=== PATIENT | female | born 1940 | race African-American/Black ===

== ENCOUNTER 2017-03-14 06:29 | Day surgery (SDC) | payer MEDICARE ==
[~2017-03-14] VITALS: Ht 160 cm; Wt 78.9 kg
[~2017-03-14 06:29] MED LIST: ENAL20TA81 PO; ERGO50000 PO; ERYT1O; HYDR12.56 PO; METF-324 PO; POLY10O OD; SYNT50TA OR
[2017-03-14] MEDS ORDERED: IOHEXOL 350 MG/ML 100 ML BTL (for Cath Lab) OTHER ONE (06:30)
[2017-03-14] MEDS ORDERED: IOHEXOL 350 MG/ML 50 ML BTL (for Cath Lab) OTHER ONE (06:30)
[2017-03-14] MEDS ORDERED: NS 1000P @30 MLS/HR (KVO) IV SCH (07:15)
[2017-03-14 07:31] VITALS: BP 174/87; PULSE 60; RESP 17; TEMP 97.6; O2SAT 96
[2017-03-14] MEDS ORDERED: ERGO1CAP30 PO (07:41)
[2017-03-14] MEDS ORDERED: ASPI81CH37 CHEW (07:41)
[2017-03-14] MEDS ORDERED: ATOR20TA15 PO (07:41)
[2017-03-14] MEDS ORDERED: LEVO50TA4 PO (07:41)
[2017-03-14] MEDS ORDERED: METF500T PO (07:41)
[2017-03-14] MEDS ORDERED: ARTIDRO EACH EYE (07:41)
[2017-03-14] MEDS ORDERED: HYDR25TA5 PO (07:41)
[2017-03-14] MEDS ORDERED: HEPARIN-NS/PF INJ 1,000 ML ONE (09:03)
[2017-03-14] MEDS ORDERED: MIDAZOLAM HCL 2 MG/2 ML VIAL ONE (09:04)
[2017-03-14] MEDS ORDERED: BIVALIRUDIN 250 MG VIAL ONE (09:54)
[2017-03-14] MEDS ORDERED: HEPARIN-NS/PF INJ 500 ML ONE (09:54)
[2017-03-14] MEDS ORDERED: CLOPIDOGREL 300 MG TAB ONE (10:15)
[2017-03-14] MEDS ORDERED: SODIUM CHLOR 0.9% 1000 ML INJ 1,000 ML IV SCH (10:40)
[2017-03-14] MEDS ORDERED: MISC INFORMATION XX ONE ×2 (10:45→11:30)
[2017-03-14] MEDS ORDERED: LIDOCAINE HCL 1% 50 ML VIAL INFIL PRN ×2 (10:45→11:30)
[2017-03-14] MEDS ORDERED: BACITRACIN OINT 0.9 GM PKT TOP ONE ×2 (10:45→11:30)
[2017-03-14] MEDS ORDERED: ATROPINE SULFATE 1 MG/ML VIAL IV PRN ×2 (10:45→11:30)
[2017-03-14] MEDS ORDERED: SODIUM CHLOR 0.9% 250 ML INJ 250 ML IV PRN ×2 (10:45→11:30)
[2017-03-14] MEDS ORDERED: METOCLOPRAMIDE HCL 10 MG/2 ML VIAL IV PRN ×2 (10:45→11:30)
[2017-03-14] MEDS ORDERED: oxyCODONE/ACETAMINOPHEN 5 MG/325 MG TAB PO PRN ×2 (10:45)
[2017-03-14] MEDS ORDERED: LORazepam 2 MG/ML VIAL IV PRN ×2 (10:45→11:30)
[2017-03-14] MEDS ORDERED: ONDANSETRON HCL 4 MG/2 ML VIAL IV PRN ×2 (10:45→11:30)
--- NOTE | 2017-03-14 10:52 | CATHPROC ---
[employer] NOW HIS Report Study Information Study Number Admission Scheduled Start Study Start [id number] Mar 14 2017 6:29AM 03/14/2017 Mar 14 2017 8:57AM [facility] Service Cardiac Catheterization Admit Source Facility Department Other [facility] - Glass Breaker Physician and Clinical Staff Initial Luis Mckoy Diet Technician Registeredkathe Dee RN, Rhys Recorder Lauryn Kenny,RT(R) Scrub Lynne Mcallister,RT(R) Procedures Performed Procedure Location (Site) Vessel Name Coronary Angiograms LCA Left Coronary Coronary Angiograms RCA Right Coronary Periph stent Iliac R. Com. (R4) Illiac Art. ELECTROTYPE CASTER Iliac R. Com. (R4) Illiac Art. PTCA RCA Right Coronary Stent RCA Prox Right Coronary Wire insertion Fem Art (right) Femoral Art Equipment Time Road Supervisor Of Engines Description Size Mfg Part Number Used/Scraped COPILOT VALVE, BLEEDBACK [id number] 09:58 [employer] Used CONTROL *[id number] ARROW INTERNATIONAL CATHETER, FR.7 BALLOON [id number] 09:09 FR 7 Used INC. WEDGE PRESSURE *[id number] TRANSDUCER, TRUWAVE [id number] 09:09 PINON MORENO * Used W/STOCKCOCK *[id number] 09:59 BOSTON SCIENTIFIC BALLOON, 3.0 15MM EMERGE MR 3.0 15MM Used *[id number] 10:29 CARDIVA MEDICAL VASCADE, FR6 CLOSURE SYSTEM FR 6\7 Used *[id number] 09:56 CORDIS/ AJAY JR 4.0 GUIDE CATHETER 55CM FR 6 Used *[id number] *[id number] 534-520T *[id number] [id number] *[id number] 534-621T *[id number] ENDOVASCULAR 10:23 STENT, EVERFLEX 8 X 40 80CM 8 X 40 [id number] Used COMPANY BALLOON, ADMIRAL EXTREME 7 X [id number] 10:17 Interneer 80CM Used 20 80CM *[id number] 09:09 MEDLINE INDUSTRIES PACK, CCL CUSTOM * Used *[id number] [id number] 09:09 MEDLINE PACER PEN, SKIN DUAL W/ RULER * Used *[id number] 10:07 MEDTRONIC STENT, 3.0 12 INTEGRITY 3.0 12 Used *[id number] [id number] 09:57 MERIT MEDICAL 30 KAVITHA INDEFLATOR Used *[id number] [id number] 09:32 Kidlandia MEDICAL SHEATH, FR6.5 PRELUDE 11CM FR 6.5 038ACT Used *6114421 [id number] 09:09 [employer]land[employer] MEDICAL WIRE, 3MMJ .035 180CM 180CM Used *[id number] [id number] 09:36 [employer] MEDICAL WIRE, EXCHANGE 260CM 3MMJ 260CM Used *0247810 [id number] 09:09 NAMIC MANIFOLD, 2 PORT * Used *[id number] [id number] 09:09 NAMIC MANIFOLD, 4 PORT * Used *7906555 09:09 NYCOMED OMNIPAQUE, 350 MG, 150ML 150ML [id number] Used [id number] 09:09 [facility] BLANKET,WARM AIR CCL * Used *[id number] [id number] 09:09 TERUMO MEDICAL SHEATH, FR5 TERUMO (10CM) FR 5 Used *[id number] [id number] 09:09 TERUMO MEDICAL SHEATH, FR7 TERUMO (10CM) FR 7 Used *[id number] WIRE, RUNTHROUGH NS FLOPPY [id number] 09:57 TERUMO MEDICAL 180CM Used .014 180CM *[id number] 09:38 VASCULAR SOLUTIONS PIGTAIL DUAL LUMEN CATHETER FR 6 5540 *[id number] Used Equipment Model, Serial, Lot Number and Expiration Data Description Model Number Serial Number Lot Number Expiration Date STENT, 3.0 12 INTEGRITY [id number] 08-10-2018 STENT, EVERFLEX 8 X 40 80CM [id number] 06-05-2019 History: Current Medications Medication Dosage/Unit Route Frequency Last Date/Time Taken Statins (any) ASA Glucophage Synthroid History: Allergies Allergy Reaction No Known Allergies NKDA History: Risk Factors Family History of Hypertension Dyslipidemia Previous MT Previous Heart Failure Premature CAD Yes Yes No No No Prior Valve Prior PCI Prior CABG Surgery No No No Cerebrovascular Peripheral Artery Chronic Lung On Dialysis Diabetes Diabetes Therapy Disease Disease Disease No Yes No Yes Yes Oral History: Symptoms/Diagnosis Selection Items SOB History: Stress Tests Stress or Imaging Studies Performed Yes History: Other Current Smoker No Labs Hgb (g/dl) Hct (%) WBC (l/cumm) Platelets (thousands) 11.60-17.00 35.00-51.00 4.00-11.00 150.00-450.00 12.6 38.6 6.1 312 Glucose (mg/dl) BUN (mg/dl) Creatinine (mg/dl) BUN:Creatinine (1:x) 74.00-106.00 7.00-18.00 0.50-1.30 10.00-20.00 96 12 0.9 13.3 Na (meq/l) K (meq/l) 136.00-145.00 3.50-5.10 141 3.9 INR (PTT:PT) 0.90-1.10 0.9 CPK-MB (ng/ML) 0.50-3.60 Not Drawn Medication Medication Total Dose (Bolus/Oral) Medication Total Dosage/Unit 1% XYLOCAINE 20 mL ANGIOMAX BOLUS 11.4 mL FENTANYL 25 mcg PLAVIX 600 mg VERSED 1 mg Medications (Bolus/Oral) Medication Time Given Dosage/Unit Administered By Reason FENTANYL 03/14/2017 9:24:38 AM 25 mcg Rhys Dee RN 25 mcg FENTANYL given in lab by Rhys Dee RN in Right Radial via Peripheral IV. Ordered by Luis Molian. VERSED 03/14/2017 9:25:00 AM 1 mg Rhys Dee RN 1 mg VERSED given in lab by Rhys Dee RN in Right Antecubital via Peripheral IV. Ordered by Luis Molina. 1% XYLOCAINE 03/14/2017 9:25:04 AM 20 mL Luis Molina 20 mL 1% XYLOCAINE given in lab by Luis Molina in Right Groin via Subcutaneous. Ordered by Luis Molina. ANGIOMAX BOLUS 03/14/2017 9:56:11 AM 11.4 mL Luis Molina 11.4 mL ANGIOMAX BOLUS given in lab by Luis Molina in Right Wrist via Peripheral IV. Ordered by Luis Durán. PLAVIX 03/14/2017 10:35:20 AM 600 mg Rhys Dee RN 600 mg PLAVIX given in lab by Rhys Dee RN via Oral. Ordered by Luis Molina. Medication (Drip) Medication Time Given Dosage/Unit Concentration/Unit Diluent (ml) Solution ANGIOMAX DRIP 03/14/2017 9:58:20 AM 1.755 mg/kg/hr 250 mg 50 NaCl .9 1.755 mg/kg/hr ANGIOMAX DRIP given in lab by Luis Molina in Right Wrist via Peripheral IV. Pump/Dr ip Flow = 26.6 ml/hr using NaCl .9 with a concentration of 250 mg in 50 ml. Ordered by Luis Molina. Initial Case Assessment Cardiovascular HR Rhythm NIBP Chest Pain 73 sinus 163/72 0 Edema Present Skin color Skin None Normal Warm Dry Circulatory - Right Pulses Posterior Tibial Femoral 1 3 Scale (0,1,2,3,4,d) Circulatory - Left Pulses Posterior Tibial Femoral 1 1 Scale (0,1,2,3,4,d) Neurological State Oriented to time-place- Alert Moves all extremities person Respiration - General Respiration Rate SpO2 (%) (B/min) 18 99 Chronological Log Time Study Chronological Log 8:56:49 Patient arrived via Bed. 8:56:50 Patient Name, D.O.B, / Armband Verified By R.N. 8:56:50 Consent signed by the physician and the patient and verified by the Glass Breaker staff. 8:56:51 Pre-op and post- op instructions given; patient acknowledges understanding of instructions. 8:56:51 Verbal Stimulation=2 Physical Stimulation=2 Airway=2 Respiration=2 TOTAL=8. (0=absent, 1=li mited, 2=present) 8:56:57 Presedation assessment performed by Glass Breaker RN. 8:57:00 Patient has been NPO for More than 6Hrs. 8:57:00 Skin Breakdown- none per patient 8:57:01 Patient Warmer Placed on the Table. 8:57:02 Shandra Prominences Protected 8:57:05 A # 20 IV was noted in the Antecubital (right). Grade = 0 8:57:06 History and physical on the chart or being dictated. Assessment: Initial Case, HR=73 BPM, Rhythm=sinus, BQVL=801/72 mmhg, Chest Pain=0, Edema=None, Color=Normal, Skin = Warm, Dry Right Pulses: Post Tib=1, Femoral=3 8:57:09 Left Pulses: Post Tib=1, Femoral=1 Neurological: State=Alert, Ox3, MARTEL Respiration: Resp=18 B/min, SpO2=99 % Vitals capture started with the following parameters, Patient=Adult, Interval=5 min, Initial P glkjzln=920 mmHg, 9:04:43 Deflation Rate=5 mmHg, Cuff placed on Left Arm 9:05:21 HR=69 bpm, QWMW=311/72 mmhg, SpO2=98.0 %, Resp=8 B/min, Pain=0, Kole=10, Webster=2 9:07:51 Reference ECG taken 9:10:24 HR=67 bpm, YJEC=984/76 mmhg, SpO2=98.0 %, Resp=18 B/min, Pain=0, Kole=10, Webster=2 9:13:14 Bilateral groins prepped with 2% chlorhexidine, and draped after a 3 min. waiting time. 9:15:25 HR=61 bpm, SAGY=806/78 mmhg, SpO2=98.0 %, Resp=16 B/min, Pain=0, Kole=10, Webster=2 9:17:48 MD paged 9:18:22 Pressure channel 1 zeroed. 9:19:00 MD arrived. 9:20:26 HR=62 bpm, DAZU=091/74 mmhg, SpO2=97.0 %, Resp=16 B/min, Pain=0, Kole=10, Webster=2 Time Out. Correct patient, correct procedure, correct physician, power injector not loaded with contrast surgical team 9:24:07 present. Time Out Concurred by MD, individual staff in procedure. 9:24:30 Case Start 9:24:38 25 mcg FENTANYL given in lab by Rhys Dee RN in Right Radial via Peripheral IV. Ordered Luis Owens. 9:25:00 1 mg VERSED given in lab by Rhys eDe RN in Right Antecubital via Peripheral IV. Ordered by Luis Molina. 9:25:04 20 mL 1% XYLOCAINE given in lab by Luis Molina in Right Groin via Subcutaneous. Ordered Luis Owens. 9:25:29 HR=71 bpm, FVNY=177/64 mmhg, SpO2=93.0 %, Resp=13 B/min, Pain=0, Kole=10, Webster=2 9:25:56 Access site was Right Femoral Artery. 9:26:13 A SHEATH, FR5 TERUMO (10CM) FR 5 was advanced into the Fem Art (right) using the Percutaneou s technique. 9:28:06 Access site was Right Femoral Vein. 9:28:14 A SHEATH, FR7 TERUMO (10CM) FR 7 was advanced into the Fem Vein (right) using the Percutaneo us technique. 9:29:00 A CATHETER, FR.7 BALLOON WEDGE PRESSURE FR 7 was inserted via Fem Vein (right) Recorded Pressure: RA, HR=64, Condition=Condition 1 9:29:22 (Right Atrium) RA 5/5/2 Recorded Pressure: RV, HR=66, Condition=Condition 1 9:29:53 (Right Ventricle) RV 40/0/8 9:30:18 HR=73 bpm, IVGB=029/64 mmhg, SpO2=94.0 %, Resp=14 B/min, Pain=0, Kole=10, Webster=2 Recorded Pressure: PA, HR=60, Condition=Condition 1 9:30:33 (Pulmonary Artery) PA 35/10/19 A SHEATH, FR6.5 PRELUDE 11CM FR 6.5 was exchanged in the Fem Art (right). This was necessary in order to 9:31:34 accomodate a larger catheter. Recorded Pressure: PCW, HR=66, Condition=Condition 1 9:31:58 (Pulmonary Capillary Wedge) PCW 10//5 9:32:26 Saturation: Site=Ao (Aorta) , O2=91.6 %, Hgb=12.6 gm/dl, Condition=Condition 1. Used in calc ulation. 9:32:32 Saturation: Site=PA (Pulmonary Artery) , O2=72.2 %, Hgb=12.6 gm/dl, Condition=Condition 1. U sed in calculation. 9:34:54 Pressure channel 2 zeroed. 9:35:11 [place] Nuha Catheter Removed 9:35:17 HR=60 bpm, RPHS=548/62 mmhg, SpO2=96.0 %, Resp=24 B/min, Pain=0, Kole=10, Webster=2 A AL 1 INFINITI CATHETER FR 6 was advanced over a wire. OMNIPAQUE, 350 MG, 150ML 150ML was used for 9:35:22 injections. 9:35:58 The previous wire was exchanged for a wire. After removing the current catheter a PIGTAIL DUAL LUMEN CATHETER FR 6 was advanced over a WIRE, EXCHANGE 9:37:13 260CM 3MMJ 260CM. 9:39:50 Wire removed 9:40:22 HR=76 bpm, RYEZ=860/59 mmhg, SpO2=96.0 %, Resp=15 B/min, Pain=0, Kole=10, Webster=2 Recorded Pressure: LV, Ao, HR=61, Condition=Condition 1 9:41:15 (Left Ventricle) LV 179/5/14, (Aorta) Ao 105/44/67 9:42:07 Catheter was removed A JL 4.0 INFINITI CATHETER FR 5 was advanced over a wire. OMNIPAQUE, 350 MG, 150ML 150ML was us ed for 9:42:21 injections. 9:44:02 The LCA was injected and visualized at various angles. OMNIPAQUE, 350 MG, 150ML 150ML used. After removing the current catheter a JR 4.0 INFINITI CATHETER FR 4 was advanced over a WIRE, 3 MMJ .035 180CM 9:44:50 180CM. 9:45:19 HR=71 bpm, CPIY=703/68 mmhg, SpO2=94.0 %, Resp=15 B/min, Pain=0, Kole=10, Webster=2 9:47:15 Catheter was removed A JR 4.0 INFINITI CATHETER FR 6 was advanced over a wire. OMNIPAQUE, 350 MG, 150ML 150ML was us ed for 9:48:04 injections. Recorded Pressure: Ao, HR=67, Condition=Condition 1 9:48:42 (Aorta) Ao 128/48/79 9:49:44 The RCA was injected and visualized at various angles. OMNIPAQUE, 350 MG, 150ML 150ML used. 9:50:22 HR=66 bpm, HKQR=656/61 mmhg, SpO2=97.0 %, Resp=27 B/min, Pain=0, Kole=10, Webster=2 9:53:00 Catheter was removed 9:55:19 A JR 4.0 GUIDE CATHETER 55CM FR 6 was advanced over a wire. contrast was used for injections . 9:55:21 HR=66 bpm, LMBZ=965/67 mmhg, SpO2=98.0 %, Resp=17 B/min, Pain=0, Kole=10, Webster=2 9:56:11 11.4 mL ANGIOMAX BOLUS given in lab by Luis Molina in Right Wrist via Peripheral IV. Orde red by Luis Molina. 9:58:09 A WIRE, RUNTHROUGH NS FLOPPY .014 180CM 180CM was inserted via Fem Art (right). 1.755 mg/kg/hr ANGIOMAX DRIP given in lab by Luis Molina in Right Wrist via Peripheral IV. P ump/Drip Flow = 9:58:20 26.6 ml/hr using NaCl .9 with a concentration of 250 mg in 50 ml. Ordered by Luis Molina. A BALLOON, 3.0 15MM EMERGE MR 3.0 15MM was inserted over WIRE, RUNTHROUGH NS FLOPPY .014 180CM 180CM 9:59:55 via the Fem Art (right). 10:00:20 HR=63 bpm, CUKK=613/65 mmhg, SpO2=96.0 %, Resp=13 B/min, Pain=0, Kole=10, Webster=2 A BALLOON, 3.0 15MM EMERGE MR 3.0 15MM over a WIRE, RUNTHROUGH NS FLOPPY .014 180CM 180CM in e 10:02:08 RCA was inflated using a 30 KAVITHA INDEFLATOR at 10 kavitha for 30 sec. 10:03:52 Balloon Removed. 10:05:23 HR=58 bpm, VHUZ=417/66 mmhg, SpO2=96.0 %, Resp=13 B/min, Pain=0, Kole=10, Webster=2 An STENT, 3.0 12 INTEGRITY 3.0 12 Bare Metal Stent was inserted through a JR 4.0 GUIDE CATHETER 55CM FR 6 10:06:48 over a WIRE, RUNTHROUGH NS FLOPPY .014 180CM 180CM. A STENT, 3.0 12 INTEGRITY 3.0 12 was deployed using a 30 KAVITHA INDEFLATOR at 16 atmospheres for 1 3 seconds in 10:08:26 the RCA Prox. 10:09:10 Re-inflated the stent balloon in the RCA Prox to 14 KAVITHA for 10 seconds. 10:10:24 HR=53 bpm, AKMT=114/64 mmhg, SpO2=96.0 %, Resp=14 B/min, Pain=0, Kole=10, Webster=2 10:10:33 Re-inflated the stent balloon in the RCA Prox to 14 KAVITHA for 10 seconds. 10:11:42 Delivery device removed 10:12:39 Catheter was removed 10:13:07 An injection in the Fem Art (right) was made through the SHEATH, FR6.5 PRELUDE 11CM FR 6.5. 10:14:40 A WIRE, EXCHANGE 260CM 3MMJ 260CM was inserted via Fem Art (right). 10:15:25 HR=62 bpm, RZBZ=115/64 mmhg, SpO2=95.0 %, Resp=13 B/min, Pain=0, Kole=10, Webster=2 A BALLOON, ADMIRAL EXTREME 7 X 20 80CM 80CM was inserted over WIRE, EXCHANGE 260CM 3MMJ 260CM v ia the 10:17:34 Fem Art (right). 10:18:25 In the Iliac R. Com. (R4) a BALLOON, ADMIRAL EXTREME 7 X 20 80CM 80CM was inflated to 6 kavitha s for 50 seconds. 10:19:10 In the Iliac R. Com. (R4) a BALLOON, ADMIRAL EXTREME 7 X 20 80CM 80CM was inflated to 6 kavitha s for 60 seconds. 10:20:20 Balloon Removed. 10:20:24 HR=66 bpm, TUXY=847/57 mmhg, SpO2=95.0 %, Resp=14 B/min, Pain=0, Kole=10, Webster=2 A STENT, EVERFLEX 8 X 40 80CM 8 X 40 was advanced through a catheter over a WIRE, EXCHANGE 260C M 3MMJ 10:22:59 260CM. A STENT, EVERFLEX 8 X 40 80CM 8 X 40 was deployed at ~KAVITHA~ atmospheres for ~SECONDS~ seconds in the Iliac R. 10:23:45 Com. (R4). 10:25:26 HR=62 bpm, VDBP=817/65 mmhg, SpO2=96.0 %, Resp=15 B/min, Pain=0, Kole=10, Webster=2 A BALLOON, ADMIRAL EXTREME 7 X 20 80CM 80CM was inserted over WIRE, EXCHANGE 260CM 3MMJ 260CM v ia the 10:26:06 Fem Art (right). 10:26:12 In the Iliac R. Com. (R4) a BALLOON, ADMIRAL EXTREME 7 X 20 80CM 80CM was inflated to 10 at ms for 5 seconds. 10:26:18 In the Iliac R. Com. (R4) a BALLOON, ADMIRAL EXTREME 7 X 20 80CM 80CM was inflated to 10 at ms for 5 seconds. 10:27:20 Balloon Removed. 10:29:22 VASCADE, FR6 CLOSURE SYSTEM FR 6\7 placement in the Fem Vein (right) 10:30:25 HR=62 bpm, UVON=033/65 mmhg, SpO2=96.0 %, Resp=13 B/min, Pain=0, Kole=10, Webster=2 10:34:13 Case End 10:35:20 600 mg PLAVIX given in lab by Rhys Dee RN via Oral. Ordered by Luis Molina. 10:35:58 HR=67 bpm, NJMB=591/78 mmhg, SpO2=98.0 %, Resp=18 B/min, Pain=0, Kole=10, Webster=2 10:40:29 HR=72 bpm, LOIX=930/85 mmhg, SpO2=98.0 %, Resp=15 B/min, Pain=0, Kole=10, Webster=2 10:42:02 In the Fem Art (right) the SHEATH, FR6.5 PRELUDE 11CM FR 6.[address] by Lynne Mcallister, RT(R). 10:43:20 Sterile dressing applied to site 10:45:38 Vitals capture stopped. 10:45:58 No case complications noted. 10:45:59 Cine recording checked. 10:46:01 Holding Area notified of successful intervention. 10:46:02 Bedside Report will be given. 10:46:03 Implantable Device card placed in patient's chart. 10:46:04 Contrast Scanned 10:46:06 Verbal Stimulation=2 Physical Stimulation=2 Airway=2 Respiration=2 TOTAL=8. (0=absent, 1=li mited, 2=present) 10:46:08 A Left and Right Heart Cath was performed. 10:50:00 Patient moved to [facility] End Study - Contrast Media Used In Study Contrast Total Opened (mL) Total Used (mL) Total Wasted (mL) Omnipaque 150 150 0 End Study - Maximum Contrast Load Max Contrast Load (mL) 421.2 End Study - Radiation Exposure Fluoro Time (minutes) 16.6 End Study - Patient Disposition Complications Transferred To Interventional Outcome No Telemetry Bed successful
[2017-03-14] MEDS ORDERED: cloNIDine HCL 0.1 MG TAB ONE (11:12)
[2017-03-14] MEDS ORDERED: hydrALAZINE HCL 20 MG/ML VIAL IV PUSH PRN (11:30)
[2017-03-14] MEDS ORDERED: cloNIDine HCL 0.1 MG TAB PO PRN (11:30)
[2017-03-14 12:23] LABS: MRSA PCR NEGATIVE (NEGATIVE); STAPH AUREUS PCR NEGATIVE (NEGATIVE)
--- NOTE | 2017-03-14 13:04 | MA ---
cc: GENOLUIS DATE 03/14/2017 PRESS BRAKE OPERATOR Luis andrews MD/[facility] PROCEDURE PERFORMED 1. Fluoroscopy with interpretation 2. Left heart catheterization 3. Right heart catheterization 4. Coronary angiography 5. Percutaneous intervention of the ostium of the right coronary artery with bare metal stent. 6. Right common femoral angiography 7. Endovascular stenting with self-expanding stent of the right external iliac artery. METHOD The risks, benefits and alternatives discussed with the patient. The patient understood and consented to the procedure. The patient brought into the catheterization lab, placed on the catheterization table. Right groin was prepped and draped in a sterile fashion. Right groin was anesthetized with 2% lidocaine. Right common femoral was cannulated. A 5-Slovenian 11 cm sheath was placed without difficulty. LEFT HEART CATHETERIZATION A 6-Slovenian AL-1 catheter was advanced to the ascending aorta. A straight-tipped wire was then advanced across the aortic valve with some difficulty. AL-1 was advanced into the left ventricle and a 260 cm standard J-wire was then advanced into the left ventricle. The AL-1 catheter was removed. A 6-Slovenian dual-lumen pigtail catheter was then advanced into the left ventricle. Simultaneous left ventricular and aortic pressures were measured. The intraventricular hemodynamics were measured at 179/5 mmHg. The left end-diastolic pressure of 14 mmHg. Aortic pressure simultaneous measured at 105/44 mmHg with a average gradient of 57 mmHg. Aortic valve area was calculated, mean gradient of 56 mmHg was obtained and an aortic valve area of 0.58 cm2 was obtained. RIGHT HEART CATHETERIZATION A 7-Slovenian [place]-Nuha Promotility catheter was advanced to the right femoral venous sheath under fluoroscopic guidance. Hemodynamics were performed in all chambers while advancing to the pulmonary capillary wedge position. HEMODYNAMIC RESULTS 1. Right atrial pressure measured 5 mmHg 2. Right ventricular pressure measured 40/0 mmHg 3. Pulmonary arterial pressure measured 35/10 mmHg 4. Pulmonary wedge pressure measured at 10 mmHg. 5. Cardiac output was measured at 6.7 liters per minute. 6. Cardiac index 3.8 liters per minute per meter squared CORONARY ANGIOGRAPHY 1. Left main coronary has minor luminal irregularities. 2. Left anterior descending coronary is tortuous, but has minor luminal irregularities. 3. Left circumflex is tortuous, but has an obtuse marginal branch with minor luminal irregularities. 4. Right coronaries is a dominant vessel giving rise to a posterior descending coronary artery. The right coronary has minor luminal irregularities. There is some calcium present at the ostium. There is significant dampening upon engagement. There appears to be an 80% ostial discrete stenosis present. PERCUTANEOUS INTERVENTION Given the dampening and angiographic appearance of the right coronary artery, we elected to proceed with intervention. The right coronary was selectively engaged with a 6-Slovenian JR-4 guide catheter, again dampening was noted. A 0.014, 180 cm Terumo run-through wire was navigated down the distal right coronary artery. The guide catheter was then disengaged. A 3.0 x 15 mm RX Euphora balloon was then dilated in the ostium, re-engagement confirmed still residual stenosis and wave form dampening. A 3.0 x 12 mm RX bare metal integrity stent was advanced to the ostium of the right coronary. Careful attention was paid not to extend the stent into the aorta as there were plans in the future for potential aortic valve replacement from a surgical or percutaneous route. The stent was deployed and the ostium postdilated at 16 atmospheres. Repeat angiography showed no significant residual stenosis or dampening upon engagement. The wire was removed. Guide catheter removed. PERIPHERAL ANGIOGRAPHY Right common femoral artery. Selective angiography of the right common femoral was performed. Right common femoral is relatively free of disease and of good caliber size. There appeared to be a dissection non flow-limiting in the right distal external iliac artery at the distal edge of the sheath. PERIPHERAL INTERVENTION So A wire was carefully navigated to the descending aorta. A 7.0 x 20 mm Medtronic balloon was then deployed on two sequential inflations to see if we could tack the dissection up. It was non-flow limiting. After prolonged balloon inflation, dissection was still obviously present for concerns that it would close acutely, we elected to proceed with endovascular stenting. An 8.0 x 40 mm Medtronic 83 self-expanding stent was then carefully deployed at the level of the right external iliac artery to just above the inferior epigastric. Repeat angiography after post dilation showed no residual stenosis, JACINTA-III flow. The wire was removed. The sheath was then sewn into place to be removed. Manual hemostasis. CONCLUSIONS 1. Severe aortic stenosis. 2. Normal left and right-sided filling pressures. Normal cardiac output and index. Normal pulmonary pressures. 3. Severe ostial right coronary artery stenosis. 4. Successful endovascular stenting and bare metal stent of the right coronary artery. 5. 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 6. Successful endovascular stenting with self-expanding stent of the right distal external iliac artery. PLAN The patient is hemodynamically stable. The patient tolerated the procedure well without any post procedural complications. We will further evaluate the patient for aortic valve surgery. We will consult cardiothoracic surgeon for evaluation of surgical candidacy versus percutaneous transaortic valvular replacement. The patient was evaluated by the TAVR coordinator and was noted to be 2/4 frailty score. The patient will need Plavix for least for the next four weeks. We will monitor the patient overnight for an anticipated possible discharge tomorrow. MD TRUE Cantor/RADHA /10:40 AM /12:43 PM
[2017-03-14 15:00] VITALS: BP 102/55; PULSE 50; PULSE 58; RESP 17; TEMP 98; O2SAT 99
--- NOTE | 2017-03-14 16:15 | PD.CAR.PN ---
CVT Progress Note Subjective/Hospital Course: sts data discussed with pt RISK SCORES About the STS Risk Calculator Procedure: AV Replacement Risk of Mortality: 3.634% Morbidity or Mortality: 20.894% Long Length of Stay: 9.948% Short Length of Stay: 23.014% Permanent Stroke: 2.195% Prolonged Ventilation: 14.469% DSW Infection: 0.217% Renal Failure: 6.569% Reoperation: 7.919% Objective: Vital Signs Date Time Temp Pulse Resp B/P (MAP) Pulse Ox O2 Delivery O2 Flow Rate FiO2 03/14/17 13:39 97 Room Air 03/14/17 07:31 97.6 60 17 174/87 (116) 96 Labs: Laboratory Tests Test 03/14/17 07:24 Nasal Screen MRSA (PCR) NEGATIVE (NEGATIVE) Staphylococcus aureus (PCR)(LAB) NEGATIVE (NEGATIVE) Iris Whittaker Mar 14, 2017 16:15
[2017-03-14 20:30] VITALS: BP 143/76; PULSE 63; RESP 16; TEMP 98; O2SAT 97
[2017-03-14] MEDS ORDERED: ATORVASTATIN 20 MG TAB PO SCH (21:00)
--- NOTE | 2017-03-14 21:52 | MB ---
cc: MERLE TEMPLETON DATE OF CONSULTATION 03/14/17 DATE OF 1940 HISTORY OF PRESENT ILLNESS A very pleasant 76-year-old black female, patient of Dr. Jeffry Duran, Dr. Jak Molina, who has had known history of heart murmur for the last 8-9 years, had some palpitations, arrhythmia in her 20s. Started having some mild chest discomfort. She thought it was indigestion, felt better after she was belching. She tires easily and had an episode of some pain along the left side of her neck that radiated into her left shoulder. She is fairly active. Underwent an echocardiogram which showed an EF of 60-65%, some moderate LVH, normal left ventricular systolic function, some mild diastolic dysfunction. There was some mild mitral regurgitation and some mild mitral valve stenosis, mean valve gradient of 3. The aortic valve had some diffuse calcification. No aortic valve insufficiency. Severe aortic stenosis with an aortic valve mean gradient of 49 and the aortic valve area 0.65. Tricuspid valve had some mild tricuspid regurgitation. Pulmonary artery pressures of 38 mmHg. We were asked to evaluate the patient for aortic valve replacement using conventional minimally invasive versus an open sternotomy versus transcatheter aortic valve replacement. The patient underwent cardiac cath today by Dr. Molina. During the cath procedure she was found to have some 20% stenosis in the proximal LAD, the mid distal LAD. The circ 20%, however, the RCA had an 80% stenosis. The patient underwent placement of a bare metal stent to the RCA today, however, had a right external iliac stent placed secondary to traumatic dissection secondary to that sheath. PAST MEDICAL HISTORY Includes aortic valve stenosis, diabetes mellitus, hypothyroidism, hyperlipidemia, hypertension. Other history includes chronic kidney disease stage III. Gastroesophageal reflux disease. She does have history of ptosis. PAST SURGICAL HISTORY Surgeries include right knee arthroscopy, eye surgery, bilateral rotator cuff repair, bilateral laser surgery. ALLERGIES No known allergies. MEDICATIONS Home meds include: 1. Aspirin. 2. Atorvastatin. 3. Hydrochlorothiazide. 4. Levothyroxine. 5. Metformin. 6. Vitamin __. FAMILY HISTORY Mother at age 26 from complications of pneumonia. Father from old age. SOCIAL HISTORY The patient , three children. Retired motel product development chemist. Very active in her gnosticist. She helps clean the gnosticist weekly. She can walk up to a couple blocks per day. 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 She does her own cooking and cleaning. REVIEW OF SYSTEMS GENERAL: In general, no night sweats, fever, heat or cold intolerance. SKIN: No psoriasis, itching or hives. HEENT: No blurred vision, hearing loss. RESPIRATORY: No cough. Some mild fatigue with exertion. CARDIOVASCULAR: As above in the HPI. GASTROINTESTINAL: No diarrhea, vomiting. GENITOURINARY: No burning, frequency, urgency. DOLL EYE SETTER: No history of TIA, CVA, seizure disorder. ENDOCRINOLOGY: Positive for diabetes and hypothyroidism. PHYSICAL EXAMINATION VITAL SIGNS: On exam blood pressure 170/80, heart rate 60, O2 sat 96 on room air. GENERAL: Patient is awake, alert. No acute distress. HEENT: Head is normocephalic, atraumatic. Pupils are equal and reactive. She has some mild ptosis to the left eyelid. NECK: Supple. No JVD. HEART: Heart sounds S1-S2 with a grade 3 to 4/6 systolic murmur best noted at the right upper sternal border. No rubs or gallops. LUNGS: Clear to auscultation. No wheezes, rales or rhonchi. ABDOMEN: Soft, nontender. No masses or organomegaly. EXTREMITIES: No cyanosis, clubbing or edema. LABORATORY FINDINGS Shows hemoglobin of 12, hematocrit of 38, white cell count of 6.1, platelet count of 312. Sodium 141, potassium 3.9, BUN 12, creatinine 0.92, INR 0.9. CARDIOLOGY STUDIES EKG shows sinus rhythm with a right bundle branch block. Some LVH by EKG criteria. IMPRESSION A very pleasant 76-year-old female with history of heart murmur, aortic stenosis with a valve area of 0.65, symptoms including chest pain, grade 1 diastolic dysfunction. Also, underwent bare metal stent to the RCA today for an 80% stenosis of the right coronary artery with EF of 60%. At this time her comorbidities include diabetes, mild CHF with class II symptoms, coronary artery disease with status post bare metal stent to the RCA. Her STS data reveals a 3.64% risk of mortality. The frailty score is still pending. Albumin is pending and further workup still pending at this time. Dictated by: MARJORIE Lui Merle MD SHAKIRA Rowell/LITA /4:17 PM /2:17 PM
[2017-03-14] MEDS: METOPROLOL TARTRATE 25 MG TAB PO SCH (22:04)
[2017-03-14 22:27] LABS: BICARBONATE 26.2 MEQ/L (21.0-32.0)
[2017-03-14 22:29] LABS: POTASSIUM 3.9 MEQ/L (3.5-5.1)
[2017-03-15 00:45] VITALS: BP 111/51; PULSE 61; RESP 16; TEMP 97.8; O2SAT 94
[2017-03-15 05:28] VITALS: BP 121/60; PULSE 55; RESP 16; TEMP 98.1; O2SAT 98
[2017-03-15] MEDS ORDERED: LEVOTHYROXINE SODIUM 50 MCG TAB PO SCH (06:00)
[2017-03-15 06:29] LABS: AUTOMATED NEUTROPHIL # 3.7 TH/MM3 (1.8-7.7); BASOPHIL # 0.1 TH/MM3 (0-0.2); BASOPHIL % 0.8 % (0.0-2.0); EOSINOPHIL # 0.2 TH/MM3 (0-0.4); EOSINOPHIL % 3.6 % (0.0-4.0); HEMATOCRIT 36.4 % (35.0-46.0); HEMO FLAGS DIFF FINAL; LYMPHOCYTE # 1.7 TH/MM3 (1.0-4.8); MEAN CORPUSCULAR HEMOGLOBIN 26.9 PG (27.0-34.0); MEAN CORPUSCULAR HGB CONC 32.4 % (32.0-36.0); MONO % 8.5 % (0.0-8.0); NEUT % 60.1 % (16.0-70.0); PLATELET COUNT 236 TH/MM3 (150-450); RED BLOOD COUNT 4.38 MIL/MM3 (4.00-5.30); RED CELL DISTRIBUTION WIDTH 13.6 % (11.6-17.2); WHITE BLOOD COUNT 6.1 TH/MM3 (4.0-11.0)
[2017-03-15 06:49] LABS: BICARBONATE 25.8 MEQ/L (21.0-32.0); POTASSIUM 3.4 MEQ/L (3.5-5.1)
[2017-03-15 06:52] LABS: HDL CHOLESTEROL 70.7 MG/DL (40.0-60.0)
[2017-03-15 07:00] VITALS: BP 131/69; PULSE 56; RESP 16; TEMP 98; O2SAT 98
[2017-03-15] MEDS ORDERED: PLAV75TA29 PO (07:31)
[2017-03-15] MEDS ORDERED: METO25TA3 PO (07:31)
--- NOTE | 2017-03-15 07:35 | HHI.DS ---
Discharge Summary Admission Date Admitting Diagnosis CAD CBC/BMP: 03/15/17 0505 03/15/17 0505 Significant Findings Laboratory Tests Test 03/14/17 07:24 03/14/17 20:24 03/15/17 05:05 Albumin 3.0 GM/DL (3.4-5.0) Mean Corpuscular Hemoglobin 26.9 PG (27.0-34.0) Monocytes (%) (Auto) 8.5 % (0.0-8.0) Potassium Level 3.4 MEQ/L (3.5-5.1) Estimat Glomerular Filtration Rate 77 ML/MIN (>89) HDL Cholesterol 70.7 MG/DL (40.0-60.0) PE at Discharge GENERAL: SKIN: Warm and dry. HEAD: Normocephalic. EYES: No scleral icterus. No injection or drainage. NECK: Supple, trachea midline. No JVD or lymphadenopathy. CARDIOVASCULAR: RRR 3/6 SM. RESPIRATORY: Breath sounds equal bilaterally. No accessory muscle use. GASTROINTESTINAL: Abdomen soft, non-tender, nondistended. MUSCULOSKELETAL: No cyanosis, or edema. BACK: Nontender without obvious deformity. No CVA tenderness. Hospital Course severe CAD s/p PCI RCA BMS will discuss with TAVR team DC today asa plavix bb statin Pt Condition on Discharge: Good Discharge Disposition: Discharge Home Discharge Instructions DIET: Follow Instructions for: Heart Healthy Diet Activities you can perform: Weight Bearing as Luis Avery MD Mar 15, 2017 07:35
[2017-03-15] MEDS: METOPROLOL TARTRATE 25 MG TAB PO SCH (08:06)
[2017-03-15] MEDS ORDERED: ASPIRIN 81 MG CHEW TAB CHEW SCH (09:00)
[2017-03-15] MEDS ORDERED: LISINOPRIL 5 MG TAB PO SCH (09:00)
[2017-03-15] MEDS ORDERED: CLOPIDOGREL 75 MG TAB PO SCH (09:00)
[2017-03-15] MEDS ORDERED: IOHEXOL 350 MG/ML 10 ML VIAL (for RAD DIAG) IVCONTRAST ONE (09:46)
--- NOTE | 2017-03-15 10:30 | RADRPT ---
EXAM DATE/TIME: 03/15/2017 09:25 [place] COMPARISON: No previous studies available for comparison. INDICATIONS : Pre operative for Trans Aortic Valve Replacement IV CONTRAST: 95 cc Omnipaque 350 (iohexol) IV RADIATION DOSE: 32.69 CTDIvol (mGy) MEDICAL HISTORY : Hypertension. Diabetes mellitus type 2. Hypothyroidism.A-fib SURGICAL HISTORY : None. ENCOUNTER: Initial ACUITY: 1 day PAIN SCALE: 0/10 LOCATION: Chest/ abdominal/ pelvis area TECHNIQUE: Volumetric scanning was performed using a multi-row detector CT scanner. The data was post processed with a variety of visualization algorithms including full volume maximum intensity projection, multi -planar sliding thin slab reformation, curved planar reformation, and surface rendering techniques. Using automated exposure control and adjustment of the mA and/or kV according to patient size, radiat ion dose was kept as low as reasonably achievable to obtain optimal diagnostic quality images. DIC OM format image data is available electronically for review and comparison. FINDINGS: CARDIAC: Moderate coronary calcifications are evident. The disease is seen in the LAD. There is no pericardi al effusion. There is mild chamber enlargement left ventricle. AORTIC ROOT/VALVE: 3 cusps are evident with moderate calcifications. The aortic root measures 3.3 cm. Mid thoracic aorta measures 2.4 cm with calcific plaque occasional soft plaque. THORACIC AORTA: Extensive calcific plaque is seen at the origin of the innominate artery and left subclavian. The le ft vertebral artery arises as the separate origin. ABDOMINAL AORTA: Moderate calcific plaque is seen in the abdominal aorta. Distal aorta is small measuring 1.2 cm. CELIAC ARTERY: Calcific plaque is present at the origin of the celiac. The splenic artery arises from the SMA. SMA: Minimal calcific plaque is seen at the origin of the SMA. RIGHT RENAL ARTERY: Calcific plaque is present at the origin the right renal artery not felt to be significant. LEFT RENAL ARTERY: Small left renal artery is patent RIGHT COMMON ILIAC: Calcific plaque is seen at the origin of the right common iliac. The common iliac measures [address] is seen in the right external iliac. LEFT COMMON ILIAC: Minimal calcific plaque is present at the origin of the left common iliac. The left common iliac apurva sures 7 mm. There is no significant stenosis. THORAX: There are no suspicious lung lesions identified. There is no axillary or mediastinal adenopathy. ABDOMEN: No suspicious masses identified. There is no adenopathy. Small midline hernia is evident. PELVIS: There are no suspicious solid masses. There is no adenopathy. CONCLUSION: Findings as described above. There is no significant soft plaque identified. Extensive calcific marianne que is seen in the origin of the great vessels. Iliac stent present on the right. Jak Pryor MD FACR on March 15, 2017 at 10:15 Board Certified Radiologist. This report was verified electronically.
[2017-03-15 11:00] VITALS: BP 120/62; PULSE 58; RESP 20; TEMP 98; O2SAT 97
--- NOTE | 2017-03-15 12:14 | EKG ---
Date Performed: 03/14/2017 Time Performed: 07:38:50 PTAGE: 76 years EKG: Sinus arrhythmia. Possible left atrial abnormality Left axis deviation RBBB with left anter ior fascicular block Left ventricular hypertrophy Abnormal ECG PREVIOUS TRACING : 08/10/2005 08.06 Compared to the old tracing, the right bundle branch block, the left anterior kai block, and the left atrial abnormality are all new. Cannot exclude lateral in farct compared to the old tracing. Significant changes have occurred from the old tracing. Clinical c orrelation is advised. DOCTOR: Luis Denney Interpretating Date/Time 03/15/2017 12:12:40
[2017-03-15 15:00] VITALS: BP 130/62; PULSE 50; PULSE 56; RESP 16; TEMP 98; O2SAT 98
--- NOTE | 2017-03-15 20:24 | MB ---
cc: VEGA CUETO,FABIAN SMALLS,LOS Kothari MD [facility],[place] DATE OF CONSULTATION 03/15/[address] Molina REASON FOR CONSULTATION Second opinion regarding aortic valve pathology. HISTORY OF PRESENT ILLNESS Ms. Umaña is a very pleasant 76-year-old female who presents with progressive symptoms of fatigue, palpitations and chest discomfort. The patient is seen by Dr. Molina and has been evaluated and has undergone further workup including a coronary angiogram today which revealed single-vessel coronary artery disease with 80% ostial stenosis of the right coronary artery. ___ she underwent percutaneous intervention with angioplasty and bare metal stenting of the right coronary artery successfully. She also underwent stenting of the right external iliac artery due to traumatic non-flow limiting dissection at the site of the cardiac cath. In addition to her coronary angiography she has also undergone a previous echocardiogram which has revealed critical aortic stenosis with valve area of 0.58 and a mean gradient of [address] Amaya has seen her for surgical cardiothoracic surgery and I am now being considered for second opinion. At the present time she remains pain free, medically stable with no evidence of progressive symptomatology or ischemia. PAST MEDICAL HISTORY 1. Significant for hypertension. 2. Diabetes mellitus. 3. Hyperlipidemia. 4. Hypothyroidism. 5. Severe aortic valve stenosis as described above. 6. Chronic kidney disease. 7. Gastroesophageal reflux disease. 8. History of ptosis. PAST SURGICAL HISTORY 1. Remarkable for right knee arthroscopy. 2. Eye surgery. 3. Bilateral rotator cuffs repairs. 4. Bilateral laser surgery. 5. Coronary angiography with angioplasty stenting as described above. ALLERGIES THE PATIENT REPORTS NO KNOWN DRUG ALLERGIES. HOME MEDICATIONS Include: 1. Aspirin. 2. Atorvastatin. 3. Hydrochlorothiazide. 4. Levothyroxine. 5. Metformin. 6. Vitamin D. FAMILY HISTORY Noncontributory. SOCIAL HISTORY She denies any history of smoking, alcohol use or illicit drug use. REVIEW OF SYSTEMS As above. All other parameters are negative. PHYSICAL EXAMINATION On examination today she is 160 cm tall, weighs 79 kilograms. VITAL SIGNS: Blood pressure 140/62 with a heart rate of 58 which is regular, respiratory rate is 20. She is afebrile. HEENT: Normocephalic, atraumatic. Pupils are round, reactive. Extraocular muscles intact. NECK: No cervical lymphadenopathy, carotid bruits or JVD. CARDIOVASCULAR: Regular rate, rhythm. Normal S1-S2 without gallops or rubs. There is a 4/6 systolic ejection murmur at the right parasternal border. LUNGS: Clear to auscultation bilaterally with good exchange. ABDOMEN: Soft, nontender, nondistended with ___ bowel sounds. No hepatosplenomegaly. EXTREMITIES: Bilateral lower extremity pulses are intact without cyanosis, clubbing or edema, venous varicosities. NEUROLOGICAL: Intact with no focal deficits. IMPRESSION 1. Severe aortic stenosis. 2. Single-vessel coronary artery disease status post PCI. 3. Hypertension. 4. Diabetes mellitus. 5. Hyperlipidemia. 6. GERD. 7. Renal insufficiency. 8. Hypothyroidism. PLAN The clinical, angiographic, as well as echo findings were discussed in detail with the patient and her daughter today. Given her underlying medical comorbidities with an STS risk score of 3.6% mortality as well as her 2/4 frailty score, I think she will maximally benefit from a TAVR procedure to replace her symptomatic aortic stenosis. I agree that she is intermediate risk for surgical intervention and will benefit from percutaneous valve therapy. At this point we will continue her TAVR workup with plans to proceed in that regard following completion of her workup. This would defer to the TAVR team. Thank you for allowing me to participate with your patient. Los DE JESUS/LITA /3:07 PM /7:52 PM
--- NOTE | 2017-03-15 20:33 | EKG ---
Date Performed: 03/15/2017 Time Performed: 05:36:26 PTAGE: 76 years EKG: Sinus bradycardia with sinus arrhythmia Left axis deviation RBBB with left anterior fascicu lar block Possible left ventricular hypertrophy Lateral T wave changes are probably due to ventricula r hypertrophy Abnormal ECG PREVIOUS TRACING : 03/14/2017 07.38 Compared to prior tracing no significant change DOCTOR: Michael Brenner Interpretating Date/Time 03/15/2017 20:32:56
[2017-03-17] MEDS ORDERED: ERGOCALCIFEROL (VIT D2) 50,000 UNIT CAP PO SCH (09:00)
--- NOTE | 2017-03-22 09:05 | RSPPFT ---
DATE OF PROCEDURE: 03/14/17 COMMENTS: Spirometry with FVC of 1.4 predicted 2.5, FEV1 of 1.2 predicted 1.8, FEV1/FVC ratio at 86% predicted 81%. Flow volume loops are less than ideal. IMPRESSION: On the basis of the above, the patient likely has a restrictive lung defect and lung volumes would be helpful for further clarification.
== END 2017-03-15 17:23 | disposition home or self-care (01) ==
LOC: HDIC 06:29 → HDOC 06:29 → HCIS 15:31 → HDOC 03-15 17:23
PROVIDERS: ATTEND Internal Medicine
DX: I35.0 Nonrheumatic aortic (valve) stenosis (principal); I25.10 Atherosclerotic heart disease of native coronary artery without angina pectoris; I77.72 Dissection of iliac artery; I12.9 Hypertensive chronic kidney disease with stage 1 through stage 4 chronic kidney disease, or unspecified chronic kidney disease; N18.3 Chronic kidney disease, stage 3 (moderate); E11.22 Type 2 diabetes mellitus with diabetic chronic kidney disease; E11.3593 Type 2 diabetes mellitus with proliferative diabetic retinopathy without macular edema, bilateral; E78.5 Hyperlipidemia, unspecified; G25.0 Essential tremor; I65.29 Occlusion and stenosis of unspecified carotid artery; E03.9 Hypothyroidism, unspecified; K21.9 Gastro-esophageal reflux disease without esophagitis; E55.9 Vitamin D deficiency, unspecified; Z79.84 Long term (current) use of oral hypoglycemic drugs; Z79.82 Long term (current) use of aspirin; Z79.899 Other long term (current) drug therapy
CPT/HCPCS: 37221; 74174; 75710; 80048; 80061; 80069; 82550; 85025; 86850; 86900; 86901; 87640; 87641; 92928; 93005; 93456; 94010; C1725; C1760; C1769; C1876; C1887; C1893; G0269; J0583; J1644; J2250; J3010; Q9967; 36140

== ENCOUNTER 2017-04-03 05:08 | Inpatient (IN) | payer MEDICARE ==
[2017-04-03] VITALS (10 sets, daily range): BP systolic 72–163; BP diastolic 38–70; PULSE 62–111; RESP 16–22; TEMP 97.3–98.4; O2SAT 79–99
[~2017-04-03] VITALS: Ht 160 cm; Wt 77.7 kg
[~2017-04-03 05:08] MED LIST changes: +ARTIDRO EACH EYE; +ASPI81CH37 CHEW; +ATOR20TA15 PO; -ENAL20TA81 PO; +ERGO1CAP30 PO; -ERGO50000 PO; -ERYT1O; -HYDR12.56 PO; +LEVO50TA4 PO; -METF-324 PO; +METO25TA3 PO; +PLAV75TA29 PO; -POLY10O OD; -SYNT50TA OR
[2017-04-03] MEDS ORDERED: HYDR25TA5 PO (05:32)
[2017-04-03] MEDS ORDERED: METF500T PO (05:32)
[2017-04-03] MEDS ORDERED: ASPIRIN 325 MG TAB PO PRN (05:45)
[2017-04-03] MEDS ORDERED: METOPROLOL TARTRATE 25 MG TAB PO PRN (05:45)
[2017-04-03] MEDS ORDERED: INSULIN HUMAN REGULAR 1,000 UNITS/10 ML VIAL SQ PRN (05:45)
[2017-04-03] MEDS ORDERED: SODIUM CHLOR 0.9% 1000 ML INJ 1,000 ML IV SCH ×2 (05:45→10:11)
[2017-04-03] MEDS ORDERED: MUPIROCIN 2% OINT 1 APPLIC/GM SYR NASAL PRN (05:45)
[2017-04-03] MEDS ORDERED: POVIDONE IODINE 5% (ANTISEPSIS KIT) 4 APPLICATIONS EACH NARE PRN ×2 (05:45)
[2017-04-03] MEDS ORDERED: CHLORHEXIDINE GLUCONATE 2 % 1 PACK (2 CLOTHS) TOPICAL PRN ×2 (05:45)
[2017-04-03] MEDS ORDERED: LACTATED RINGER'S 1000 ML IV PRN (05:45)
[2017-04-03] MEDS ORDERED: SODIUM CHLORID 0.9% 500 ML IV PRN (05:45)
[2017-04-03 06:29] LABS: AUTOMATED NEUTROPHIL # 2.6 TH/MM3 (1.8-7.7); EOSINOPHIL # 0.2 TH/MM3 (0-0.4); EOSINOPHIL % 4.2 % (0.0-4.0); HEMATOCRIT 38.5 % (35.0-46.0); HEMO FLAGS DIFF FINAL; LYMPH % 28.7 % (9.0-44.0); LYMPHOCYTE # 1.3 TH/MM3 (1.0-4.8); MEAN CELL VOLUME 83.5 FL (80.0-100.0); MEAN CORPUSCULAR HEMOGLOBIN 26.8 PG (27.0-34.0); MEAN CORPUSCULAR HGB CONC 32.2 % (32.0-36.0); MONO % 9.5 % (0.0-8.0); NEUT % 56.6 % (16.0-70.0); PLATELET COUNT 238 TH/MM3 (150-450); RED BLOOD COUNT 4.62 MIL/MM3 (4.00-5.30); RED CELL DISTRIBUTION WIDTH 13.7 % (11.6-17.2); WHITE BLOOD COUNT 4.7 TH/MM3 (4.0-11.0)
[2017-04-03] MEDS ORDERED: HEPARIN-NS/PF INJ 2,000 ML ONE (06:31)
[2017-04-03 06:44] LABS: APTT (PATIENT) 29.3 SEC (24.3-30.1); PROTHROMBIN TIME - PATIENT 11.1 SEC (9.8-11.6)
[2017-04-03 06:50] LABS: BICARBONATE 27.4 MEQ/L (21.0-32.0); POTASSIUM 3.2 MEQ/L (3.5-5.1)
[2017-04-03] MEDS ORDERED: CUSTODIOL HTK IRR SOLN 0 ML ONE (07:22)
[2017-04-03] MEDS ORDERED: POTASSIUM CHLORIDE 40 MEQ/20 ML VIAL ONE (07:22)
[2017-04-03] MEDS ORDERED: POTASSIUM CHLOR 40 MEQ PREMIX 100 ML ONE (07:27)
[2017-04-03] MEDS: ceFAZolin 2 GM PREMIX 50 ML IV SCH ×3 (07:33→08:49)
[2017-04-03] MEDS ORDERED: HEPARIN-NS/PF INJ 500 ML ONE (07:54)
--- NOTE | 2017-04-03 07:59 | MB ---
cc: PETTY MELVIN DATE OF 1940 H&P April 03, 2017. REASON FOR ADMISSION Elective percutaneous aortic valve replacement. HISTORY OF PRESENT ILLNESS 76-year-old female with past medical history significant for CAD status post PCI /BMS to right coronary artery, hypertension, hyperlipidemia, diabetes, diastolic heart failure who was admitted today for elective percutaneous aortic valve replacement in the setting of severe symptomatic aortic stenosis. The patient has been referred by Dr. Molina. The patient's symptoms are worsening dyspnea with minimal exertion for [place] [employer] Class II to III. She has been evaluated by the structural heart valve team who have deemed her intermediate risk for convection and AVR in the setting of SDS of 3.6 and a 3/4 frail and comorbidities. The patient has undergone full TAVR workup. Currently she denies any fevers, chills, nausea, vomiting, diarrhea, chest pain, palpitations or syncope. REVIEW OF SYSTEMS Negative except for what is mentioned in the HPI. PAST MEDICAL HISTORY 1. CAD status post BMS to the right coronary artery. 2. Hypertension. 3. Diabetes. 4. Hyperlipidemia. 5. Hypothyroidism. HOME MEDICATIONS Reviewed. The patient is on aspirin and Plavix. ALLERGIES No known drug allergies. FAMILY HISTORY Noncontributory. SOCIAL HISTORY Denies illicit drug use, smoking or alcohol abuse. PHYSICAL EXAMINATION VITAL SIGNS: Temperature 97, respiratory rate 20, heart rate 120/80, O2 sat is 100% on room air. GENERAL: She is awake, alert, oriented x 3, in no acute distress. NECK: No JVD, no carotid bruits. HEART: Regular rate and rhythm. There is a 3/6 systolic ejection murmur in the aortic focus. LUNGS: Clear to auscultation bilaterally. ABDOMEN: Positive bowel sounds, soft, nontender, nondistended. EXTREMITIES: No cyanosis, no edema. Pulses throughout. DATA LABS Creatinine 0.74. H&H 11 and 36, platelets of 236. TAVR WORKUP Her SDS score 3.6, frailty is 3/4. EKG: Sinus rhythm with a right bundle branch block. Pulmonary function tests showed an FEV-1 of 1.2 and there is mild restriction. ECHOCARDIOGRAM Aortic valve velocity of 4.8, mean gradient of 49mmHg, calculated valve area of 0.65, ejection fraction of 60%. CORONARY ANGIOGRAPHY She had a recent bare metal stent in the ostial right coronary artery. There is dominant right. The left side system has no obstructive coronary artery disease. CTA analysis shows an annular area of 345 with a sinus of Valsalva diameter of 25.5, SP of 22, left coronary height of 21, right coronary height of 16.7. There is no calcification in the LV. There is some LVH. Iliacs show a minimal luminal diameter on the right at 4.7 and on the left of 7.0. There is minimal calcification. There is a stent on the right external iliac. ASSESSMENT AND PLAN 76-year-old female admitted for severe symptomatic aortic stenosis. She is undergoing today elective TAVR. The patient has a preserved ejection fraction. She has been evaluated thoroughly by the TAVR team who have deemed her to be a TAVR candidate. He was an underlying right bundle branch block, borderline 1 degree AV block and sinus bradycardia at baseline all high risk features for post TAVR AV block. Case discuss with EP for evaluation per protocol. The risks and benefits of TAVR including but not limited to pacemaker, permanent pacemaker , complete AV block or tachy-demetrice arrhythmia, renal failure, neurovascular trauma, bleeding, infection, stroke, open heart surgery and have been explained to the patient. The patient understands the risks and she is willing to proceed. PLAN 1. Access - Left transfemoral access. 2. Implantation of valve, a 20-mm S3 valve + 1cc. MD JULIAN Herrera/DANIEL /7:22 AM /7:32 AM TEJA
[2017-04-03] MEDS ORDERED: PROTAMINE SULFATE 50 MG/5 ML VIAL ONE (09:31)
[2017-04-03] MEDS ORDERED: HEPARIN SODIUM - SQ 10,000 UNITS/ML VIAL ONE (09:39)
--- NOTE | 2017-04-03 09:48 | PD.OP ---
cc: Eddi Perry MD; Merle Rucker MD; Luis Molina MD Operative Report Date of Surgery: Apr 03, 2017 Preoperative Diagnosis: (1) Aortic stenosis (2) Diastolic CHF due to valvular disease (3) Right bundle branch block Postoperative Diagnosis: same, complete heart block Procedure: Transcatheter aortic valve replacement with a 20 Enrique 3 tissue valve Balloon aortic valvuloplasty with an 18 True Balloon Temporary transvenous pacemaker placement Right femoral and vein percutaneous access with arterial Perclose closure Left femoral artery percutaneously access with Perclose closure aortography Fluoroscopy Anesthesia: Dr. Quintana Surgeon: Merle Rucker Co-surgeon - Dr. Forbes Photoengraving Finisher(s): Dr. Dylan Molina Operation and Findings: The risks, benefits, complications, treatment options, and expected outcomes were discussed with the patient. The possibilities of reaction to medication, pulmonary aspiration, perforation of viscus, bleeding, recurrent infection, the need for additional procedures, failure to diagnose a condition, and creating a complication requiring transfusion or operation were discussed with the patient. The patient concurred with the proposed plan, giving informed consent. The site of surgery properly noted/marked. The patient was taken to the hybrid operating room, identified as Mallory Umaña and the procedure verified as Transcatheter Aortic Valve Replacement. A Time Out was held and the above information confirmed. Standard monitoring lines and Mcdaniesl catheter were placed. General anesthesia was induced. The patient was prepped and draped in a sterile fashion. Initially, right femoral arterial and venous access was acquired using a Seldinger percutaneous technique. The details of this procedure were dictated under separate note by cardiology. Once a pigtail was positioned in the aortic annulus and a temporary transvenous pacemaker wire was placed in the right ventricular apex and tested, the left femoral artery was accessed using a needle followed by a guidewire under fluoroscopic guidance. Perclose ddevices were deployed for later arterial closure. Serial dilators were used to dilate the left femoral artery to 14 [place] caliber. The Lopez sheath was then inserted into the left femoral artery up to the abdominal aorta. Arch aortography was performed to define the implant view. A balloon aortic valvuloplasty was then performed using a 18 x 6 True balloon with the patient being paced at 180 beats per minute. A 20 Lopez Enrique 3 transcatheter aortic valve was then positioned in the annulus and deployed with the patient being paced at 180 beats per minute. Following deployment, the valve apparatus was withdrawn and PERRY was performed to assess the valve. The valve had no significant perivalvular leaks. The patient did develop complete heart block and was paced. The sheath was slowly withdrawn to the distal left common iliac artery under fluoroscopic guidance. Therefore, the sheath was withdrawn under direct vision and removed. The artery was closed with the Perclose devices. Sterile dressings were placed. At the end of the operation, all sponge, instruments, and needle counts were correct. The patient was transferred to the CICU in stable condition. Findings: Valve deployed in good position with no PVL. Implants: 20 S3 tissue valve Complications: complete heart block Disposition: to CVICU in stable condition Merle Rucker MD Apr 03, 2017 09:48
--- NOTE | 2017-04-03 10:13 | PD.PROCEDR ---
Procedure Note Procedure Procedure: Transesophageal Echocardiography Diagnosis: Severe aortic stenosis Indications: Perioperative Planning for transcatheter aortic valve replacement Consent: Was obtained Anesthesia: General endotracheal anesthesia Description of the Procedure: The patient was sedated and mechanically ventilated. The echo probe was inserted easily and without resistance. At the conclusion of the procedure, the echo probe was removed. Please see detailed echocardiogram report for formal findings. Preliminary Findings (not confirmed): Pre-procedure: 1) Concentric LVH 2) normal left ventricular function 3) normal right ventricular size and function 4) trace mitral regurgitation 5) Severe aortic valve stenosis, valve area calculated ~0.5 cm^2 by continuity equation 6) trace aortic insufficiency 7) no pericardial effusion 8) no evidence of intra-atrial shunting by color flow Doppler Post-procedure: 1) successful placement of transcatheter bioprosthetic aortic valve 2) no evidence of perivalvular leak 3) no evidence of bioprosthetic valve stenosis. 4) [id number] mitral regurgitation 5) moderately elevated PAP by TR gradient 6) no pericardial effusion The patient tolerated the procedure well with no hemodynamic instability or hypoxia. There were no immediate complications noted. I personally performed the procedure. Bridger Bourgeois MD Apr 03, 2017 10:13
[2017-04-03] MEDS ORDERED: ATROPINE SULFATE 1 MG/ML VIAL IV PUSH PRN ×2 (10:15→19:00)
[2017-04-03] MEDS ORDERED: MISC INFORMATION OTHER ONE (10:15)
[2017-04-03] MEDS ORDERED: DEXTROSE 50% IN WATER 50 ML VIAL(D50) IV PUSH PRN (10:15)
[2017-04-03] MEDS ORDERED: ACETAMINOPHEN 325 MG TAB PO PRN (10:15)
[2017-04-03] MEDS ORDERED: GLUCAGON 1 MG/ML VIAL OTHER PRN (10:15)
[2017-04-03] MEDS ORDERED: RESP: ALBUTEROL 2.5 MG/3 ML NEB (SCH) ONE (10:38)
[2017-04-03] MEDS ORDERED: CALCIUM CHLORIDE INJ 1 GM in SODIUM CHLORIDE 0.9% INJ 100 ML IV ONE (10:45)
[2017-04-03] MEDS ORDERED: POTASSIUM CHLOR 40 MEQ PREMIX 100 ML IV ONE (10:45)
[2017-04-03] MEDS ORDERED: RESP: ALBUTEROL 2.5 MG/3 ML NEB (SCH) INH ONE (11:30)
--- NOTE | 2017-04-03 11:33 | PD.CONS ---
[facility] Service Critical Care Medicine Consult Requested By Dr. Forbes Reason for Consult perioperative management of comorbid conditions Primary Care Physician Unknown History of Present Illness This is a 76yF with history of DM, CAD and severe aortic stenosis who presents s /p elective transcatheter aortic valve replacement. Intra-operatively, she went into 3rd degree heart block requiring pacing. She additionally had [id number] mitral regurgitation post-procedure. She presents to the CVICU extubated, emerging from anesthesia. immediately post-op she had hypoxemia and hypotension requiring an additional 500cc crystalloid and high flow nasal cannula 35 LPM with 60% fio2. Critical care is consulted to evaluate and manage her multiple comorbid conditions. Review of Systems ROS Limitations: Clinical Condition ROS arousing from anesthesia. Past Family Social History Allergies: Coded Allergies: No Known Allergies (Verified , 02/15/10) Uncoded Allergies: NKDA (Allergy, Unknown, 03/23/03) Past Medical History CAD s/p PCI with BMS to RCA HTN DM HLD Hypothyroidism Past Surgical History s/p right iliac stent s/p PCI with BMS to RCA Reported Medications Metoprolol Tartrate 25 Mg Tab 12.5 Mg PO BID 30 Days Plavix (Clopidogrel Bisulfate) 75 Mg Tab 75 Mg PO DAILY 30 Days Hydrochlorothiazide 25 Mg Tab 25 Mg PO BID Metformin (Metformin HCl) 500 Mg Tab 500 Mg PO BIDPC With meals Ergocalciferol 50,000 Unit Cap 50,000 Units PO Q7D Artificial Tears Opth Drops (Propylene Glycol-Glycerin Opth Drops) 1-0.3% Drops 1-2 Drop EACH EYE PRN PRN Levothyroxine (Levothyroxine Sodium) 50 Mcg Tab 50 Mcg PO DAILY Atorvastatin (Atorvastatin Calcium) 20 Mg Tab 20 Mg PO HS Aspirin Low Dose (Aspirin) 81 Mg Chew 162 Mg CHEW DAILY Active Ordered Medications See MAR Family History reviewed in the chart and found to be noncontributory to her acute illness Social History - tob, - etoh. Physical Exam Vital Signs Vital Signs Date Time Temp Pulse Resp B/P (MAP) Pulse Ox O2 Delivery O2 Flow Rate FiO2 04/03/17 10:55 95 High Flow Nasal Cannula 35.00 60 04/03/17 10:45 90 High Flow Nasal Cannula 35.00 100 04/03/17 10:40 88 High Flow Nasal Cannula 30.00 100 Physical Exam gen: frail elderly female, lying in bed, arousing from anesthesia heent: perrl. mucous membranes moist. neck: no jvd. trachea midline chest: scant expiratory wheezes. spo2 94%. high flow NC at 35 LPM, 60% fio2. cv: paced rhythm, rate 80, evidence of 3rd degree heart block abd: soft, nontender, nondistended. no guarding. extr: groin sites without evidence of hematoma. Dopplerable distal LE pulses. neuro: RASS -1. arousing from anesthesia. nonfocal. Laboratory Laboratory Tests Test 04/03/17 06:00 White Blood Count 4.7 Red Blood Count 4.62 Hemoglobin 12.4 Hematocrit 38.5 Mean Corpuscular Volume 83.5 Mean Corpuscular Hemoglobin 26.8 Mean Corpuscular Hemoglobin Concent 32.2 Red Cell Distribution Width 13.7 Platelet Count 238 Mean Platelet Volume 8.6 Neutrophils (%) (Auto) 56.6 Lymphocytes (%) (Auto) 28.7 Monocytes (%) (Auto) 9.5 Eosinophils (%) (Auto) 4.2 Basophils (%) (Auto) 1.0 Neutrophils # (Auto) 2.6 Lymphocytes # (Auto) 1.3 Monocytes # (Auto) 0.4 Eosinophils # (Auto) 0.2 Basophils # (Auto) 0.0 CBC Comment DIFF FINAL Differential Comment Prothrombin Time 11.1 Prothromb Time International Ratio 1.0 Activated Partial Thromboplast Time 29.3 Blood Urea Nitrogen 13 Creatinine 1.04 Random Glucose 84 Calcium Level 9.0 Sodium Level 141 Potassium Level 3.2 Chloride Level 105 Carbon Dioxide Level 27.4 Anion Gap 9 Estimat Glomerular Filtration Rate 62 Result Diagram: 04/03/17 0600 04/03/17 0600 Assessment and Plan Assessment and Plan Assessment: 76yF POD 0 s/p TAVR. Will need permanent dual chamber pacemaker. Dr. Turner is consulted and this will likely happen later today. remain in CVICU with close monitoring. Her significant LVH and small LV cavity will make volume status tenuous. s/p TAVR 04/03 concentric left ventricular hypertrophy [id number] Mitral regurgitation - careful volume status monitoring. - trend CVP - if severely hypotensive, will preferentially use phenylephrine and volume, though currently maintaining map goal > 65 mmHg - watch uop closely - repeat echo in 1-2 days 3rd degree heart block - Dr. Turner to place dual-chamber PPM - continue transvenous pacer, VVI @ 80. Hypertension - hold home anti-hypertensives given relative hypotension - goal sbp < 180 and map > 65 mmHg Hyperlipidemia - continue home statin CAD s/p BMS to RCA - restart home Plavix and ASA Hypothyroidism - restart synthroid. keep NPO until PPM, then advance diet as tolerated keep ruby tonight keep art line and central line today SCDs CCM will continue to follow along as long as patient remains in the CVICU. Bridger Bourgeois MD Apr 03, 2017 11:33
[2017-04-03] MEDS: INSULIN NovoLIN REGULAR SUPPLEMENTAL SCALE SQ SCH ×3 (11:46→21:00)
[2017-04-03] MEDS ORDERED: MIDAZOLAM HCL 2 MG/2 ML VIAL IV ONE (12:00)
[2017-04-03] MEDS ORDERED: LIDOCAINE HCL 2% JELLY 5 ML SYRINGE OTHER ONE (12:00)
[2017-04-03] MEDS ORDERED: PROPOFOL 200 MG/20 ML AMP IV ONE (12:00)
[2017-04-03] MEDS ORDERED: ROCURONIUM INJ 50 MG/5 ML SYRINGE IV PUSH ONE (12:00)
[2017-04-03] MEDS ORDERED: GLYCOPYRROLATE 1 MG/5 ML SYRINGE IV PUSH ONE (12:00)
[2017-04-03] MEDS ORDERED: HEPARIN-NS/PF INJ 1,000 ML ONE (18:29)
[2017-04-03] MEDS ORDERED: BACITRACIN OINT 0.9 GM PKT TOP ONE (19:00)
[2017-04-03] MEDS ORDERED: ONDANSETRON HCL 4 MG/2 ML VIAL IV PUSH PRN (19:00)
[2017-04-03] MEDS ORDERED: METOCLOPRAMIDE HCL 10 MG/2 ML VIAL IV PUSH PRN (19:00)
[2017-04-03] MEDS ORDERED: SODIUM CHLOR 0.9% 250 ML INJ 250 ML IV PRN (19:00)
[2017-04-03] MEDS ORDERED: oxyCODONE/ACETAMINOPHEN 5 MG/325 MG TAB PO PRN ×2 (19:00)
[2017-04-03] MEDS ORDERED: LIDOCAINE HCL 1% 50 ML VIAL INFIL PRN (19:00)
[2017-04-03] MEDS ORDERED: LORazepam 2 MG/ML VIAL IV PUSH PRN (19:00)
--- NOTE | 2017-04-03 19:03 | MB ---
cc: ANAND TURNER M.D. DATE OF CONSULTATION: 04/03/2017 REASON FOR CONSULTATION: AV block status post TAVR. HISTORY OF PRESENT ILLNESS: Ms. Umaña is a 76 year-old -Al[place]ian female with severe aortic stenosis, coronary artery disease, high blood pressure, hyperlipidemia, hypothyroidism, who underwent elective percutaneous aortic valve replacement. During the procedure, she developed complete AV block. She was pacing. Conduction resumed. There is apparently fascicular block. I was consulted for evaluation and management. The chart was reviewed. The patient was evaluated. ALLERGIES None. SOCIAL HISTORY Negative for smoking and drinking. FAMILY HISTORY Noncontributory to her current medical condition. MEDICATIONS Currently she is on: 1. Plavix. 2. Atorvastatin. 3. Metoprolol 4. Aspirin. 5. Hydrochlorothiazide. 6. Metformin. 7. Levoxyl. 8. Vitamin D. REVIEW OF SYSTEMS Currently the patient refers no chest pain or discomfort. No fever. PHYSICAL EXAMINATION: Alert, fully oriented. Her blood pressure is high, 163/70, pulse around 79, respiratory rate 18. Lungs: Ventilated. Cardiovascular: S1-S2. No gallop, no murmur. Abdomen: Soft, no masses, no bruits. Extremities: No edema. There is one electrocardiogram earlier that showed V-pacing. Current electrocardiogram shows sinus rhythm, right bundle-branch block, left anterior fascicular block, diffuse ST changes. LABORATORY DATA Hemoglobin is 12.4, white blood cell 4.7, potassium 3.2, creatinine is 1.040, INR 1.0. ASSESSMENT AND RECOMMENDATIONS Ms. Umaña has A-V block. 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 I had a long conversation with Dr. Forbes on multiple occasions. At this point my recommendation is electrophysiology study. If there is any conduction disease, then I will consider pacer insertion. The risks, the nature and the benefit of the procedure are clearly stated to her and her daughter. Risks include pneumothorax, cardiac perforation, stroke and even . They understand and agree to proceed. The procedure will be performed during hospitalization. Anand Turner MD /TERESA /6:19 PM /6:49 PM
--- NOTE | 2017-04-03 19:10 | CATHPROC ---
[facility] HIS Report Study Information Study Number Admission Scheduled Start Study Start [id number] Apr 03 2017 5:08AM 04/03/2017 Apr 03 2017 6:08PM Admit Source Facility Department Other [facility] - Wastewater Manager Physician and Clinical Staff Initial Sheila Martell Shop Foreman Adriana Holland,RT(R) TECH2 Other Anesthesia, BRUSH MACHINE SETTER Other Lynne Bazan RN Other Carmen Grider,DADARN Recorder Xochitl Pathak RN Scrub Fredrick Taylor,RT(R) Equipment Time Salesperson Stereo Equipment Description Size Mfg Part Number Used/Scraped [id number] 18:17 [employer] PACK, CCL CUSTOM * Used *[id number] 18:17 [employer] PACER HUDSON, LIMB * 2530 *[id number] Used [id number] 18:17 [employer],WARM AIR CCL * Used *[id number] 18:19 [employer] CATHETER, JSN, QUAD FR 5 Used *[id number] 18:19 [employer] CATHETER, JSN, QUAD FR 5 Used *[id number] 18:19 [employer] CATHETER, JSN, QUAD FR 5 Used *[id number] 18:42 [employer] CATHETER, JSN, QUAD FR 5 Used *[id number] 18:19 [employer] SHEATH, EPS, FR5 FAST CATH FR 5 Used *[id number] 18:19 [employer] SHEATH, EPS, FR5 FAST CATH FR 5 Used *[id number] 18:19 [employer] SHE[employer], EPS, FR5 FAST CATH FR 5 Used *[id number] 18:19 [employer] SHE[employer], EPS, FR6 FAST CATH FR 6 Used *[id number] History: Allergies Allergy Reaction No Known Allergies NKDA History: Risk Factors Hypertension Dyslipidemia Yes Yes Cerebrovascular Diabetes Disease Labs Hgb (g/dl) Hct (%) RBC (MIL/MM3) WBC (l/cumm) Platelets (thousands) 11.60-17.00 35.00-51.00 4.00-5.90 4.00-11.00 150.00-450.00 12.0 38 4.6 4.7 238 Glucose (mg/dl) BUN (mg/dl) Creatinine (mg/dl) BUN:Creatinine (1:x) 74.00-106.00 7.00-18.00 0.50-1.30 10.00-20.00 84 13 1.0 13 Na (meq/l) K (meq/l) 136.00-145.00 3.50-5.10 141 3.2 INR (PTT:PT) 0.90-1.10 1 Medication Medication Total Dose (Bolus/Oral) Medication Total Dosage/Unit 1% XYLOCAINE 20 mL Medications (Bolus/Oral) Medication Time Given Dosage/Unit Administered By Reason 1% XYLOCAINE 04/03/2017 6:39:29 PM 20 mL Sheila Turner As per physicians verba l order 20 mL 1% XYLOCAINE given in lab by Sheila Turner in Right Groin via Subcutaneous. Ordered by Valentin Turner. Reason: As per physicians verbal order. Final Case Assessment Cardiovascular HR Rhythm NIBP Chest Pain 74 sr 159/68 0 Edema Present Skin color Skin None Normal Warm Dry Circulatory - Right Pulses Dorsalis Pedis 1 Scale (0,1,2,3,4,d) Circulatory - Left Pulses Dorsalis Pedis 1 Scale (0,1,2,3,4,d) Circulatory - Lower Extremities Color Lower Right Color Lower Left Normal Normal Neurological State Oriented to time-place- Alert Moves all extremities person Respiration - General Respiration Rate SpO2 (%) O2 (lpm) (B/min) 18 98 10 Chronological Log Time Study Chronological Log 18:08:32 Patient arrived via Bed. 18:08:32 Patient Name, D.O.B, / Armband Verified By R.N. 18:08:33 Consent signed by the physician and the patient and verified by the Wastewater Manager staff. 18:08:34 Pre-op and post- op instructions given; patient acknowledges understanding of instructions. 18:08:34 Verbal Stimulation=2 Physical Stimulation=2 Airway=2 Respiration=2 TOTAL=8. (0=absent, 1=li mited, 2=present) 18:08:38 Patient has been NPO for More than 6Hrs. 18:11:05 Patient Warmer Placed on the Table. 18:11:06 Disposable Defibrillator Pads Placed On Patient. 18:11:09 Shandra Prominences Protected 18:11:10 A # 20 IV was noted in the Forearm (left). Grade = ~GRADE~ 18:11:10 A # ~SIZE~ IV was noted in the Jugular Vein (right). Grade = ~GRADE~ 18:11:12 History and physical on the chart or being dictated. 18:21:49 Anesthesia at bedside. Assumes care of patient. Jayce MARTINEZ 18:21:59 Patient has been NPO for More than 6Hrs. 18:22:04 Skin Breakdown- none 18:22:13 Disposable Defibrillator Pads Placed On Patient. 18:32:07 Reference ECG taken 18:37:48 Immediate Presedation assesment performed by physician. Time Out. Correct patient, procedure, procedure equipment, site and side verified with physicia n present. Time 18:38:00 concurred by MD, individual staff and BRUSH MACHINE SETTER. Time Out #2 - Consents verified, patient in correct position, all results are labled and displa yed, safety precautions 18:38:30 taken, antibiotics administered. Time out concurred by MD, individual staff and BRUSH MACHINE SETTER in procedu re 18:38:42 Case Start 20 mL 1% XYLOCAINE given in lab by Sheila Turner in Right Groin via Subcutaneous. Ordered by Sheila Vázquez. 18:39:29 Reason: As per physicians verbal order. 18:39:46 Vascular access was obtained in the Fem Vein (right). 18:39:57 Vascular access was obtained in the Fem Vein (right). 18:39:58 Vascular access was obtained in the Fem Vein (right). 18:39:59 Vascular access was obtained in the Fem Vein (right). 18:40:04 A SHEATH, EPS, FR5 FAST CATH FR 5 was advanced into the Fem Vein (right) using the Percutan eous technique. 18:40:10 A SHEATH, EPS, FR5 FAST CATH FR 5 was advanced into the Fem Vein (right) using the Percutan eous technique. 18:40:11 A SHEATH, EPS, FR5 FAST CATH FR 5 was advanced into the Fem Vein (right) using the Percutan eous technique. 18:40:20 A SHEATH, EPS, FR6 FAST CATH FR 6 was advanced into the Fem Vein (right) using the Percutan eous technique. A CATHETER, JSN, QUAD FR 5 was advanced vis Fem Vein (right) and placed in the HIS. Placement w as visually 18:40:29 confirmed under fluoroscopy. A CATHETER, JSN, QUAD FR 5 was advanced vis Fem Vein (right) and placed in the CS. Placement wa s visually 18:40:40 confirmed under fluoroscopy. A CATHETER, JSN, QUAD FR 5 was advanced vis Fem Vein (right) and placed in the HRA. Placement w as visually 18:40:51 confirmed under fluoroscopy. A CATHETER, JSN, QUAD FR 5 was advanced vis Fem Vein (right) and placed in the RVA. Placement w as visually 18:41:28 confirmed under fluoroscopy. 18:42:13 EP Study begun. 18:53:16 EPS complete. 18:54:07 EP Procedure was performed. 18:55:37 Catheters removed without difficulty. 18:55:53 Sheaths removed; pressure applied to access sites by DB. 19:00:15 Temporary pacer to right I J removed by CADENCE per DR Turner's order. 0.9ns kvo connected to cor dis. Assessment: Final Case, HR=74 BPM, Rhythm=sr, OIVU=633/68 mmhg, Chest Pain=0, Edema=None, Color =Normal, Skin = Warm, Dry Right Pulses: Christofer Ped=1 Left Pulses: Christofer Ped=1 19:08:11 Lower Right Extremities: Color=Normal Lower Left Extremities: Color=Normal Neurological: State=Alert, Ox3, MARTEL Respiration: Resp=18 B/min, SpO2=98 %, O2=10 lpm 19:08:12 CVCU called. Spoke to Sadler 19:08:20 Bedside Report will be given. 19:08:45 Sterile dressing applied to right groin site. 19:08:59 Cine recording checked. 19:09:00 No case complications noted. 19:09:29 Defibrillator and ground pads removed. Skin intact. 19:15:32 Patient moved to [facility] End Study - Contrast Media Used In Study Contrast Total Opened (mL) Total Used (mL) Total Wasted (mL) Unspecified 0 0 0 End Study - Maximum Contrast Load Max Contrast Load (mL) 387.0 End Study - Radiation Exposure Fluoro Time (minutes) 1.0 End Study - Sheaths Sheaths Pulled By Sheath Hold Time (min) Fredrick Taylor 20 End Study - Patient Disposition Complications Transferred To Interventional Outcome No Telemetry Bed successful
[2017-04-03] MEDS ORDERED: DO NOT ADM ANY ANTICOAGULANT DRUGS PRN (20:15)
--- NOTE | 2017-04-03 20:36 | EKG ---
Date Performed: 04/03/2017 Time Performed: 10:41:28 PTAGE: 76 years EKG: Ventricular pacing. Pacemaker rhythm - no further analysis Abnormal ECG NO PREVIOUS TRACING DOCTOR: Jacky Calero Interpretating Date/Time 04/03/2017 20:35:18
--- NOTE | 2017-04-03 20:43 | EKG ---
Date Performed: 04/03/2017 Time Performed: 06:08:50 PTAGE: 76 years EKG: Sinus bradycardia. Left axis deviation RBBB with left anterior fascicular block Left ventri cular hypertrophy Lateral T wave changes are probably due to ventricular hypertrophy Abnormal ECG PREVIOUS TRACING : 03/15/2017 05.36 Compared to prior tracing no significant change DOCTOR: Jacky Calero Interpretating Date/Time 04/03/2017 20:40:21
[2017-04-03] MEDS: ATORVASTATIN 20 MG TAB PO SCH (21:00)
--- NOTE | 2017-04-03 23:40 | EKG ---
Date Performed: 04/03/2017 Time Performed: 14:45:14 PTAGE: 76 years EKG: Sinus rhythm Left axis deviation Right bundle branch block Lateral ST changes are nonspecific Abnormal ECG Compar ed to the PREVIOUS TRACING from 04/03/17, previously [facility] DOCTOR: Michael Brenner Interpretating Date/Time 04/03/2017 23:38:21
[2017-04-04] VITALS (12 sets, daily range): BP systolic 103–164; BP diastolic 40–107; PULSE 70–94; RESP 16–20; TEMP 97.9–99.3; O2SAT 92–99
[2017-04-04 04:45] LABS: HEMATOCRIT 36.5 % (35.0-46.0); MEAN CELL VOLUME 82.4 FL (80.0-100.0); MEAN CORPUSCULAR HEMOGLOBIN 26.8 PG (27.0-34.0); MEAN CORPUSCULAR HGB CONC 32.6 % (32.0-36.0); PLATELET COUNT 201 TH/MM3 (150-450); RED BLOOD COUNT 4.43 MIL/MM3 (4.00-5.30); REVIEW FLAG FINAL; WHITE BLOOD COUNT 8.7 TH/MM3 (4.0-11.0)
--- NOTE | 2017-04-04 04:59 | PD.CARD.PN ---
Subjective Subjective Remarks no overnight events no events on telemetry Weaning O2 Negative EPS study TPM d/c Art d/c Mcdaniels d/c She has no complaints Objective Medications Current Medications Medications (Trade) Dose Ordered Sig/Pratik Route Start Time Stop Time Status Last Admin Cefazolin Sodium/ Dextrose 50 ml @ 100 mls/hr CLEARANCE COORDINATOR IV 04/03/17 05:45 04/06/17 05:44 04/03/17 07:33 (Betadine 5% Antisepsis Kit) 1 applic CLEARANCE COORDINATOR PRN EACH NARE 04/03/17 05:45 04/06/17 05:44 (Chlorhexidine 2% Cloth) 3 pack CLEARANCE COORDINATOR PRN TOPICAL 04/03/17 05:45 04/06/17 05:44 Lactated Ringer's 1,000 ml @ 30 mls/hr Q24H PRN IV 04/03/17 05:45 04/06/17 05:44 Sodium Chloride 500 ml @ 30 mls/hr [id number] PRN IV 04/03/17 05:45 04/06/17 05:44 (Lopressor) 25 mg CLEARANCE COORDINATOR PRN PO 04/03/17 05:45 04/06/17 05:44 (Betadine 5% Antisepsis Kit) 1 applic CLEARANCE COORDINATOR PRN EACH NARE 04/03/17 05:45 04/06/17 05:44 (Chlorhexidine 2% Cloth) 3 pack CLEARANCE COORDINATOR PRN TOPICAL 04/03/17 05:45 04/06/17 05:44 (NovoLIN R INJ) See Protocol Table ... CLEARANCE COORDINATOR PRN SQ 04/03/17 05:45 04/06/17 05:44 (Tylenol) 650 mg Q4H PRN PO 04/03/17 10:15 04/04/17 10:14 (Atropine Inj) 0.5 mg UNSCH PRN IV PUSH 04/03/17 10:15 04/04/17 10:14 (Aspirin Chew) 81 mg DAILY PO 04/04/17 09:00 (D50w (Vial) Inj) 50 ml UNSCH PRN IV PUSH 04/03/17 10:15 (Glucagon Inj) 1 mg UNSCH PRN OTHER 04/03/17 10:15 (NovoLIN R SUPPLEMENTAL SCALE) 1 ACHS SLIDING SCALE SQ 04/03/17 12:00 (Lipitor) 20 mg HS PO 04/03/17 21:00 04/03/17 21:00 (Plavix) 75 mg DAILY PO 04/04/17 09:00 (Drisdol) 50,000 units Q7D PO 04/07/17 09:00 (Synthroid) 50 mcg DAILY@0600 PO 04/04/17 06:00 (Percocet 5-325 Mg) 1 tab Q4H PRN PO 04/03/17 19:00 (Percocet 5-325 Mg) 2 tab Q4H PRN PO 04/03/17 19:00 (Ativan Inj) 0.5 mg UNSCH PRN IV PUSH 04/03/17 19:00 04/04/17 18:59 (Atropine Inj) 0.5 mg UNSCH PRN IV PUSH 04/03/17 19:00 Sodium Chloride 250 ml @ 500 mls/hr ONCE PRN IV 04/03/17 19:00 04/04/17 18:59 (Reglan Inj) 10 mg Q4H PRN IV PUSH 04/03/17 19:00 (Zofran Inj) 4 mg Q4H PRN IV PUSH 04/03/17 19:00 (Xylocaine 1% Inj (50 ml)) 10 ml UNSCH PRN INFIL 04/03/17 19:00 04/04/17 18:59 Miscellaneous Information ALL NURSING DEPARTME... UNSCH PRN .XX 04/03/17 20:15 04/04/17 20:14 Vital Signs / I&O Vital Signs Date Time Temp Pulse Resp B/P (MAP) Pulse Ox O2 Delivery O2 Flow Rate FiO2 04/04/17 00:00 98 Simple Mask 8.00 04/04/17 00:00 98.9 70 16 149/60 (89) 98 158/44 (82) 04/04/17 00:00 70 04/03/17 21:20 97 Simple Mask 8.00 04/03/17 21:15 96 Simple Mask 8.00 04/03/17 21:00 92 Nasal Cannula 6.00 04/03/17 20:00 64 04/03/17 20:00 98.4 62 16 142/59 (86) 97 147/41 (76) 04/03/17 19:30 97 Non-Rebreather 15.00 04/03/17 18:00 99 100 04/03/17 17:55 98 Non-Rebreather 15.00 04/03/17 15:00 93 04/03/17 15:00 88 04/03/17 15:00 98.4 79 18 163/70 (101) 98 148/54 (85) 04/03/17 13:00 98 100 04/03/17 12:00 79 04/03/17 11:00 97.3 79 20 122/59 (80) 95 127/45 (72) 04/03/17 11:00 79 04/03/17 10:55 95 High Flow Nasal Cannula 35.00 60 04/03/17 10:45 90 High Flow Nasal Cannula 35.00 100 04/03/17 10:45 91 100 04/03/17 10:40 88 High Flow Nasal Cannula 30.00 100 04/03/17 10:10 97.3 111 22 72/38 (49) 79 04/03/17 10:10 79 Simple Mask 10.00 I/O 04/03/17 04/03/17 04/03/17 04/04/17 04/04/17 04/04/17 07:00 15:00 23:00 07:00 15:00 23:00 Intake Total 2510 ml Output Total 225 ml 875 ml Balance 2285 ml -875 ml Intake IV Total 210 ml Other 2300 ml Output Urine Total 225 ml 875 ml # Bowel Movements 0 Physical Exam GENERAL: Well-nourished, well-developed patient. SKIN: Warm and dry. HEAD: Normocephalic. EYES: No scleral icterus. No injection or drainage. NECK: Supple, trachea midline. No JVD or lymphadenopathy. CARDIOVASCULAR: Regular rate and rhythm without murmurs, gallops, or rubs. RESPIRATORY: Breath sounds equal bilaterally. No accessory muscle use. Poor inspiratory effort. Rales at bases GASTROINTESTINAL: Abdomen soft, non-tender, nondistended. EXTREMITIES: No cyanosis, or edema. NEUROLOGICAL: Awake, alert, and oriented x 3. Non-focal. Laboratory Laboratory Tests Test 04/03/17 06:00 04/04/17 04:00 White Blood Count 4.7 TH/MM3 8.7 TH/MM3 Red Blood Count 4.62 MIL/MM3 4.43 MIL/MM3 Hemoglobin 12.4 GM/DL 11.9 GM/DL Hematocrit 38.5 % 36.5 % Mean Corpuscular Volume 83.5 FL 82.4 FL Mean Corpuscular Hemoglobin 26.8 PG 26.8 PG Mean Corpuscular Hemoglobin Concent 32.2 % 32.6 % Red Cell Distribution Width 13.7 % 14.0 % Platelet Count 238 TH/MM3 201 TH/MM3 Mean Platelet Volume 8.6 FL 8.6 FL Neutrophils (%) (Auto) 56.6 % Lymphocytes (%) (Auto) 28.7 % Monocytes (%) (Auto) 9.5 % Eosinophils (%) (Auto) 4.2 % Basophils (%) (Auto) 1.0 % Neutrophils # (Auto) 2.6 TH/MM3 Lymphocytes # (Auto) 1.3 TH/MM3 Monocytes # (Auto) 0.4 TH/MM3 Eosinophils # (Auto) 0.2 TH/MM3 Basophils # (Auto) 0.0 TH/MM3 CBC Comment DIFF FINAL Differential Comment Prothrombin Time 11.1 SEC Prothromb Time International Ratio 1.0 RATIO Activated Partial Thromboplast Time 29.3 SEC Blood Urea Nitrogen 13 MG/DL Creatinine 1.04 MG/DL Random Glucose 84 MG/DL Calcium Level 9.0 MG/DL Sodium Level 141 MEQ/L Potassium Level 3.2 MEQ/L Chloride Level 105 MEQ/L Carbon Dioxide Level 27.4 MEQ/L Anion Gap 9 MEQ/L Estimat Glomerular Filtration Rate 62 ML/MIN Assessment and Plan Problem List: (1) Aortic stenosis ICD Codes: I35.0 - Nonrheumatic aortic (valve) stenosis Plan: 76 y/o F s/p left TF 20mm S3 Valve. No overnight events. No CV complaints. Out of bed in chair. Negative EPS study, no need for PPM. Appreciate EP recs. Evidence of acute of chronic diastolic heart failure on exam. Still requiring supplemental O2. Recommendations: 1. Lasix 20mg IV x1 2. Cont DAPT with ASA and Plavix 3. Avoid AV blocking agents 4. Encourage ambulation and incentive spirometry 5. PT/OT 6. Downgrade to Stepdown. 7. Restart HCTZ and Metformin 8. Avoid electrolytes abnormalities 9. Wean O2 as tolerated Dr. Molina will be covering (2) Diastolic CHF due to valvular disease ICD Codes: I38 - Endocarditis, valve unspecified; I50.30 - Unspecified diastolic (congestive) heart failure (3) Right bundle branch block ICD Codes: I45.10 - Unspecified right bundle-branch block Problem Qualifiers (1) Aortic stenosis: Qualified Codes: I35.0 - Nonrheumatic aortic (valve) stenosis Eddi Perry MD Apr 04, 2017 04:59
[2017-04-04 05:04] LABS: PROTHROMBIN TIME - PATIENT 11.3 SEC (9.8-11.6)
[2017-04-04 05:11] LABS: BICARBONATE 24.1 MEQ/L (21.0-32.0); POTASSIUM 3.7 MEQ/L (3.5-5.1)
[2017-04-04] MEDS ORDERED: POTASSIUM CHLOR 20 MEQ PREMIX 100 ML ONE (05:25)
[2017-04-04] MEDS ORDERED: POTASSIUM CHLOR 20 MEQ PREMIX 100 ML IV ONE (05:45)
[2017-04-04] MEDS ORDERED: FUROSEMIDE 20 MG/2 ML VIAL IV PUSH ONE ×3 (05:45→17:15)
[2017-04-04] MEDS: LEVOTHYROXINE SODIUM 50 MCG TAB PO SCH (05:58)
--- NOTE | 2017-04-04 06:56 | RADRPT ---
EXAM DATE/TIME: 04/04/2017 06:44 [place] COMPARISON: No previous studies available for comparison. INDICATIONS : Status post TAVER. MEDICAL HISTORY : Hypertension. Diabetes mellitus type 2. Hypothyroidism .A-fib. SURGICAL HISTORY : None. ENCOUNTER: Initial ACUITY: 1 day PAIN SCORE: 0/10 LOCATION: Bilateral chest FINDINGS: A single portable frontal view of the chest shows diffuse bilateral intra-alveolar infiltrates. No ef fusions. Heart is normal in size. A degenerative and scoliotic spine. CONCLUSION: Diffuse bilateral pulmonary infiltrates. Buzz Hoang Jr., MD on April 04, 2017 at 6:54 Board Certified Radiologist. This report was verified electronically.
[2017-04-04] MEDS ORDERED: MAGNESIUM SULFATE 1 GM PREMIX 100 ML IV ONE ×2 (07:00)
[2017-04-04] MEDS: metFORMIN HCL 500 MG TAB PO SCH ×2 (07:38→17:23)
[2017-04-04] MEDS: INSULIN NovoLIN REGULAR SUPPLEMENTAL SCALE SQ SCH ×4 (08:00→20:50)
[2017-04-04] MEDS: CLOPIDOGREL 75 MG TAB PO SCH (08:34)
[2017-04-04] MEDS: ASPIRIN 81 MG CHEW TAB PO SCH (08:35)
[2017-04-04] MEDS: HYDROCHLOROTHIAZIDE 25 MG TAB PO SCH ×2 (08:35→20:50)
--- NOTE | 2017-04-04 08:55 | MA ---
cc: EDDI MELVIN DATE: 04/03/2017 DATE OF 1940 PREOPERATIVE DIAGNOSES 1. Severe symptomatic aortic stenosis with a calculated valve area of 0.65, ejection fraction of 60%. Peak velocity across the aortic valve of 5.8 and mean gradient of 49. 2. Coronary artery disease status post bare metal stent to the ostial right coronary artery. 3. Hypertension. 4. Diabetes. 5. Hyperlipidemia. 6. Hypothyroidism. POSTOPERATIVE DIAGNOSES 1. Severe symptomatic aortic stenosis with a calculated valve area of 0.65, ejection fraction of 60%. Peak velocity across the aortic valve of 5.8 and mean gradient of 49. 2. Coronary artery disease status post bare metal stent to the ostial right coronary artery. 3. Hypertension. 4. Diabetes. 5. Hyperlipidemia. 6. Hypothyroidism. OPERATIVE PROCEDURE 1. Left transfemoral transaortic valve replacement with the 20-mm S3 Lopez aortic valve. 2. Balloon aortic valvuloplasty with an 18 true balloon. 3. Aortic root aortogram. 4. Placement of a pigtail catheter for angiography. 5. Temporary pacemaker insertion. 6. Perclose on the left common femoral artery. ANESTHESIA Dr. Cook SURGEONS Dr. Merle Rucker and Dr. Blaire Richardson interventional cardiology. SOCIAL SERVICE LIAISON: Dr. Eddi Melvin. SECONDARY SUPERVISOR DISPLAY FABRICATION: Dr. Luis Molina. ECHO SUPPORT: Andrea Bourgeois. INDICATION A 76-year-old female with severe symptomatic aortic stenosis with progressive symptom of heart failure and fatigue. The patient has been evaluated for aortic valve replacement and she was deemed to be intermediate risk for conventional aortic valve replacement by Dr. Richardson and Dr. Rucker on the basis of frailty, STS score and comorbidities. She has been evaluated and accepted after extensive review of patient's chart for TAVR. The risks and benefits of the procedure have been discussed with the patient at length and consent has been signed to proceed as planned. TECHNIQUE The patient was put into general anesthesia. Then a transesophageal echocardiogram was placed and used throughout the procedure to the evaluate aortic valve position as well as position of the eight catheters. Intraoperative PERRY demonstrated severe aortic stenosis with calculated valve area of 0.65 concordant with the transthoracic images. Using 1% lidocaine for local anesthesia and a micropuncture kit, the right common femoral artery and vein were accessed and the 6-Yemeni sheath was inserted into the right common femoral artery and a 5-Yemeni sheath was inserted into the right femoral vein. Then a 5-Yemeni pigtail catheter was advanced over a J-wire around the arch of the aorta and positioned on the right coronary cusp followed by arterial angiography to get multiple views to get the adequate angle for the deployment of the Enrique valve. The valve access site was accessed with a 4D. The left groin was used for the valve access site, for this using 1% lidocaine anesthesia and a micropuncture kit. The micropuncture catheter was introduced into the left common femoral artery followed by angiography to confirm position of the sheath. After adequate evaluation of the anatomy there was no complication or bleeding. Thus an 8 Yemeni sheath was inserted into the left common femoral artery and was followed by heparin. Heparin was given for IV anticoagulation and the vein was pre closed with three devices. Then a SupraCore 0.35 mm wire was advanced into the ascending aorta followed by dilation of the common femoral artery with a 10-Yemeni dilator followed by introduction of 14 Yemeni Lopez valve sheath. Then using an AL-1 over straight Amplatz extra stiff Amplatz wire the aortic valve was crossed with the tip left in the left ventricular chamber. This was followed by insertion of a 6-Yemeni angled pigtail and reshaping of the Amplatz wire into the ventricle. The pigtail was then removed and a 18 mm true balloon was introduced followed by inflation during rapid pacing. After BAV was performed we inserted a 20-mm S3 aortic valve plus 1 cc. The balloon was mounted in the valve in the ascending aorta and then advanced across the aortic value using the pigtail, fluoroscopy as well as the PERRY to confirm position. after confirmation of position the valve was successfully deployed by balloon inflation during rapid pacing. Post deployment there were no signs of a perivalvular leak, aortic regurgitation, tamponade or wall motion abnormalities. However, the patient went into complete A-V block requiring backup pacing and 50. The patient tolerated the procedure well without complications. The catheters then were removed with pullback of the of the valve and the delivery sheath was removed from the left femoral artery where it was Perclosed. Finally the pigtail was removed and the sheath of the left side were removed, and they were closed with a basket closure device. This concluded the operation. Postoperative transesophageal echocardiogram demonstrated adequate function of the aortic bioprosthesis. The aortic valve area postprocedure was 1.6. The maximum velocity was 2 and the calculated area was 1.6. There was no aortic regurgitation or perivalvular leaks. COMPLICATIONS None. DISPOSITION The patient will be admitted to CIC unit in stable condition for post cath care. She will continue dual antiplatelet agents with aspirin and Plavix. Early extubation we will consult per protocol EP to performed EPS possible pacemaker placement given the patient's high risk features with a right bundle-branch block and the transient complete A-V block during implantation. She will be continued on telemetry monitoring. Temporary pacemaker will remain in place until EP follows. The patient will be in four hour bedrest. After bed rest she will be able to get out of bed today. MD JULIAN Herrera/CHRISTOPHE /6:55 PM /8:34 AM TEJA
[2017-04-04] MEDS ORDERED: CLOPIDOGREL 75 MG TAB PO SCH (09:00)
[2017-04-04] MEDS ORDERED: ASPIRIN 81 MG CHEW TAB CHEW SCH (09:00)
[2017-04-04] MEDS ORDERED: POTASSIUM CHLORIDE 20 MEQ CONTROLLED RELEASE TAB PO ONE ×2 (10:00→17:15)
--- NOTE | 2017-04-04 12:27 | ECHRPT ---
Indication: EF assessment of chf CONCLUSIONS BP: 135 / 59 HR: 84 Rhythm: MEASUREMENTS (Male / Female) Normal Values Technical Quality: 2D ECHO LVOT Diameter 1.6 cm LV Ejection Fraction MOD 4C 61.4 % LV Cardiac Index MOD 4C 1865.5 cm/minm LV Ejection Fraction 4C AL 62.9 % LV Cardiac Index 4C AL 1970.5 cm/minm M-MODE Aortic Root Diameter MM 1.6 cm AV Cusp Separation MM 1.0 cm DOPPLER AV Peak Velocity 339.0 cm/s AV Peak Gradient 46.0 mmHg AV Mean Gradient 26.0 mmHg AV Velocity Time Integral 55.4 cm AI Peak Velocity 327.0 cm/s AI Peak Gradient 42.8 mmHg AI Pressure Half Time 192.0 ms LVOT Peak Velocity 209.0 cm/s LVOT Peak Gradient 17.5 mmHg LVOT Velocity Time Integral 42.1 cm LVOT Cardiac Index 3446.4 cm/minm AV Area Cont Eq vti 1.4 cm AV Area Cont Eq pk 1.2 cm FINDINGS LEFT VENTRICLE Normal left ventricular size. Moderate concentric left ventricular hypertrophy. There is dynamic "pseudo" outflow tract obstructive physiology due to concentric hypertrophy and hyperdynamic systolic function. The left ventricular systolic function is hyperdynamic with an estimated ejection fraction in the ra nge of 65- 70%. No regional wall motion abnormalities are present. Doppler parameters are consistent with impaired left ventricular relaxtion (grade 1 diastolic dysfun ction). RIGHT VENTRICLE Normal right ventricular size and systolic function. LEFT ATRIUM The left atrial size is [id number] dilated. RIGHT ATRIUM The right atrial size is normal. ATRIAL SEPTUM Normal atrial septal thickness without atrial level shunting by limited color doppler interrogation. AORTA The aortic root and proximal ascending aorta are normal in size on limited imaging. MITRAL VALVE Mild thickening of the mitral valve leaflets. Mild mitral valve regurgitation. Mitral annular calcification is present. No mitral valve stenosis. AORTIC VALVE The aortic valve prosthesis is normal to two-dimensional, color flow and Doppler interrogation. Mild prosthetic valve stenosis likely secondary to undersizing. Mild paravalvular leak. Aortic valve area is 1.4 cm. Aortic valve mean gradient is 26 mmHg. TRICUSPID VALVE Structurally normal tricuspid valve. There is mild tricuspid valve regurgitation. PULMONARY VALVE The pulmonary valve is not well visualized. VESSELS The inferior vena cava is normal in size. PERICARDIUM No pericardial effusion. Luis Molina MD, FACC (Electronically Signed) Final Date:04 April 2017 12:27
--- NOTE | 2017-04-04 14:44 | PD.CAR.PN ---
CVT Progress Note Subjective/Hospital Course: 76yF with history of DM, CAD and severe aortic stenosis who presents s/p elective transcatheter aortic valve replacement. Intra-operatively, she went into 3rd degree heart block requiring pacing. per CCM note she also had additional [id number] mitral regurgitation post-procedure. Immediately postop she had some hypoxemia and hypotension requiring fluid bolus and high flow 02 . She was then seen and eval by Dr Turner underwent EP eval , and did not require placement of permanent pacer . PMH: severe , HTN, carotid artery stenosis 50% bilaterally , CKD stage 3, DM type II, HLP surgery: 04/03 Transcatheter aortic valve replacement with a 20 Enrique 3 tissue valve Balloon aortic valvuloplasty with an 18 True Balloon Temporary transvenous pacemaker placement Right femoral and vein percutaneous access with arterial Perclose closure Left femoral artery percutaneously access with Perclose closure aortography EP study 04/04 pt up in chair , on nasal cannula 4 liters feels fair, some oozing right groin site, manual pressure held by nurse and resolved in NSR, no further bradycardia stable for transfer to stepdown Objective: GENERAL: A&O x 3 SKIN: Warm and dry. dressing to both groin sites , RIJ CVC line in place HEAD: Normocephalic. EYES: No scleral icterus. No injection or drainage. NECK: Supple, trachea midline. No JVD or lymphadenopathy. CARDIOVASCULAR: Regular rate and rhythm without murmurs, gallops, or rubs. 2/6 systolic murmur RESPIRATORY: Breath sounds equal bilaterally. No accessory muscle use. GASTROINTESTINAL: Abdomen soft, non-tender, nondistended. MUSCULOSKELETAL: No cyanosis, or edema. BACK: Nontender without obvious deformity. No CVA tenderness. Vital Signs Date Time Temp Pulse Resp B/P (MAP) Pulse Ox O2 Delivery O2 Flow Rate FiO2 04/04/17 11:00 97 Nasal Cannula 3.00 04/04/17 11:00 98.2 86 18 164/107 (126) 97 04/04/17 11:00 78 04/04/17 07:36 98 Nasal Cannula 2.00 04/04/17 07:00 77 04/04/17 07:00 98.0 73 16 135/59 (84) 98 Arterial Line 04/04/17 07:00 98 Nasal Cannula 4.00 04/04/17 06:00 95 Nasal Cannula 4.00 04/04/17 05:00 92 Nasal Cannula 5.00 04/04/17 04:00 99.3 72 20 149/63 (91) 99 144/40 (74) 04/04/17 04:00 98 Nasal Cannula 6.00 04/04/17 04:00 72 04/04/17 00:00 98 Simple Mask 8.00 04/04/17 00:00 98.9 70 16 149/60 (89) 98 158/44 (82) 04/04/17 00:00 70 04/03/17 21:20 97 Simple Mask 8.00 04/03/17 21:15 96 Simple Mask 8.00 04/03/17 21:00 92 Nasal Cannula 6.00 04/03/17 20:00 64 04/03/17 20:00 98.4 62 16 142/59 (86) 97 147/41 (76) 04/03/17 19:30 97 Non-Rebreather 15.00 04/03/17 18:00 99 100 04/03/17 17:55 98 Non-Rebreather 15.00 04/03/17 15:00 93 04/03/17 15:00 88 04/03/17 15:00 98.4 79 18 163/70 (101) 98 148/54 (85) Labs: Laboratory Tests Test 04/04/17 04:00 White Blood Count 8.7 TH/MM3 (4.0-11.0) Red Blood Count 4.43 MIL/MM3 (4.00-5.30) Hemoglobin 11.9 GM/DL (11.6-15.3) Hematocrit 36.5 % (35.0-46.0) Mean Corpuscular Volume 82.4 FL (80.0-100.0) Mean Corpuscular Hemoglobin 26.8 PG (27.0-34.0) Mean Corpuscular Hemoglobin Concent 32.6 % (32.0-36.0) Red Cell Distribution Width 14.0 % (11.6-17.2) Platelet Count 201 TH/MM3 (150-450) Mean Platelet Volume 8.6 FL (7.0-11.0) Prothrombin Time 11.3 SEC (9.8-11.6) Prothromb Time International Ratio 1.0 RATIO Blood Urea Nitrogen 8 MG/DL (7-18) Creatinine 0.67 MG/DL (0.50-1.00) Random Glucose 90 MG/DL (74-106) Calcium Level 8.7 MG/DL (8.5-10.1) Sodium Level 140 MEQ/L (136-145) Potassium Level 3.7 MEQ/L (3.5-5.1) Chloride Level 108 MEQ/L (98-107) Carbon Dioxide Level 24.1 MEQ/L (21.0-32.0) Anion Gap 8 MEQ/L (5-15) Estimat Glomerular Filtration Rate 103 ML/MIN (>89) Magnesium Level 1.7 MG/DL (1.5-2.5) Result Diagram: 04/04/1739904/04/17399 (1) Aortic stenosis Plan: s/p left TF 20mm S3 Valve. uneventful night , remains on 02 IV lasix given no BB No overnight events. No CV complaints. Out of bed in chair. Negative EPS study , no need for PPM. stable for transfer to stepdown, will defer further orders per cardiology will see prn (2) Diastolic CHF due to valvular disease (3) Right bundle branch block Problem Qualifiers (1) Aortic stenosis: Qualified Codes: I35.0 - Nonrheumatic aortic (valve) stenosis Iris Whittaker Apr 04, 2017 14:44
--- NOTE | 2017-04-04 17:09 | EKG ---
Date Performed: 04/04/2017 Time Performed: 04:30:46 PTAGE: 76 years EKG: Sinus arrhythmia. Left axis deviation Right bundle branch block Abnormal ECG Compared to th e PREVIOUS TRACING from 04/03/17, no significant change DOCTOR: Michael Brenner Interpretating Date/Time 04/04/2017 17:08:45
[2017-04-04 19:35] LABS: MAGNESIUM 1.8 MG/DL (1.5-2.5)
[2017-04-04] MEDS: ATORVASTATIN 20 MG TAB PO SCH (20:51)
[2017-04-05] VITALS (16 sets, daily range): BP systolic 104–116; BP diastolic 46–51; PULSE 74–92; RESP 17–18; TEMP 98.6–98.9; O2SAT 93–99
[2017-04-05] MEDS: LEVOTHYROXINE SODIUM 50 MCG TAB PO SCH (06:10)
--- NOTE | 2017-04-05 07:44 | RADRPT ---
EXAM DATE/TIME: 04/05/2017 05:07 [facility] COMPARISON: CHEST SINGLE AP, April 04, 2017, 6:44. INDICATIONS : Respiratory disease. MEDICAL HISTORY : Hypertension. Diabetes mellitus type 2. Hypothyroidism .A-fib. SURGICAL HISTORY : None. ENCOUNTER: Subsequent ACUITY: 2 days PAIN SCORE: 0/10 LOCATION: Bilateral chest FINDINGS: A single view of the chest demonstrates marked improvement in bilateral airspace disease since Marem windy 21. No effusion. No pneumothorax. Heart size within normal limits. CONCLUSION: 1. Marked improvement in bilateral airspace disease over the last day. No effusion. Richardson Forbes MD on April 05, 2017 at 7:41 Board Certified Radiologist. This report was verified electronically.
[2017-04-05] MEDS: INSULIN NovoLIN REGULAR SUPPLEMENTAL SCALE SQ SCH ×2 (08:00→11:37)
[2017-04-05] MEDS: metFORMIN HCL 500 MG TAB PO SCH (08:32)
[2017-04-05] MEDS: CLOPIDOGREL 75 MG TAB PO SCH (08:34)
[2017-04-05] MEDS: ASPIRIN 81 MG CHEW TAB PO SCH (08:34)
[2017-04-05] MEDS: HYDROCHLOROTHIAZIDE 25 MG TAB PO SCH (08:35)
[2017-04-07] MEDS ORDERED: ERGOCALCIFEROL (VIT D2) 50,000 UNIT CAP PO SCH (09:00)
--- NOTE | 2017-04-08 13:32 | MD ---
cc: FABIAN LORA ADMISSION DATE: 04/03/2017 DISCHARGE DATE: 04/05/2017 HOSPITAL COURSE This is a 76-year-old female with diagnosis of severe aortic valve stenosis and coronary artery disease, who presented electively on an outpatient basis for transcatheter aortic valve replacement. The patient underwent successful TAVR with a 20 mm S3 Lopez aortic prosthetic valve on April 03, 2017. The patient tolerated the procedure well. Nyasia-procedure the patient had complete heart block which was transient and resolved [address] Sheila Turner, Electrophysiology was consulted for further recommendations given the known bundle-branch block and transient complete heart block, for recommendations and consideration of possible pacemaker. The patient underwent electrophysiology study which was negative and no pacemaker was placed. The patient's postoperative course was otherwise unremarkable. The patient does have diastolic heart failure related to the valvular heart disease with improvement on diuresis. Follow-up echocardiogram showed improvement in the mitral regurgitation, in addition to the normal functioning bioprosthetic aortic valve. The patient was discharged on 04/05/2017. DISPOSITION To home. DISCHARGE MEDICATIONS Aspirin 162 mg a day, Atorvastatin 20 mg a day, Plavix 75 mg a day, hydrochlorothiazide 25 mg twice a day, levothyroxine 50 mcg a day, metformin 500 mg twice daily, metoprolol 12.5 mg twice daily, eyedrops. FOLLOWUP The patient is going to have follow up in the next 2 weeks in the outpatient setting with myself. DIET Cardiac diet. ACTIVITY As tolerated. No heavy lifting. PHYSICAL EXAMINATION GENERAL: The patient is alert and oriented x3, in no acute distress. HEENT: Exam shows pupils are reactive to light and accommodation. Extraocular movements are intact. NECK: No elevation in jugular venous distension. No thyromegaly or lymphadenopathy. No carotid bruits. LUNGS: Clear to auscultation bilaterally. CARDIOVASCULAR: Irregular with a 2/6 systolic murmur right sternal border. ABDOMEN: Nontender, nondistended. Good bowel sounds. No hepatosplenomegaly. 1+ edema. LABORATORY DATA Hemoglobin 11.9, platelet count 201, INR is 1, BUN 8, creatinine 0.67. DISCHARGE DIAGNOSIS 1. Acute on chronic diastolic congestive heart failure. 2. Severe aortic valve stenosis. 3. Mitral regurgitation. 4. Successful transcatheter aortic valve replacement with S3 Lopez prosthetic valve. 5. Transient complete heart block, nyasia-procedure with resolution postprocedure and negative electrophysiology study. MD MIGUEL A Cantor /9:50 AM /1:05 PM
== END 2017-04-05 15:24 | disposition home or self-care (01) | DRG 266 ==
LOC: HSDI 05:08 → HDIC 05:10 → HCVR 10:27 → HCIS 04-04 08:38 → HCVR 04-04 09:20 → HCIN 04-04 19:15
PROVIDERS: ADMIT Radiology Vascular & Interventional Radiology; ATTEND Radiology Vascular & Interventional Radiology
PROC: 4A023FZ Measurement of Cardiac Rhythm, Percutaneous Approach (ICD-10-PCS; 2017-04-03)
PROC: 4A0234Z Measurement of Cardiac Electrical Activity, Percutaneous Approach (ICD-10-PCS; 2017-04-03)
PROC: 02RF38Z Replacement of Aortic Valve with Zooplastic Tissue, Percutaneous Approach (ICD-10-PCS; principal; 2017-04-03 07:08)
PROC: 5A1213Z Performance of Cardiac Pacing, Intermittent (ICD-10-PCS; 2017-04-03 07:08)
PROC: B24BZZ4 Ultrasonography of Heart with Aorta, Transesophageal (ICD-10-PCS; 2017-04-03 07:08)
DX: I08.0 Rheumatic disorders of both mitral and aortic valves (principal); I50.33 Acute on chronic diastolic (congestive) heart failure; I44.2 Atrioventricular block, complete; I45.2 Bifascicular block; N18.3 Chronic kidney disease, stage 3 (moderate); E11.22 Type 2 diabetes mellitus with diabetic chronic kidney disease; I11.0 Hypertensive heart disease with heart failure; I25.10 Atherosclerotic heart disease of native coronary artery without angina pectoris; E78.5 Hyperlipidemia, unspecified; E03.9 Hypothyroidism, unspecified; I95.81 Postprocedural hypotension; R09.02 Hypoxemia; Z79.84 Long term (current) use of oral hypoglycemic drugs; Z95.820 Peripheral vascular angioplasty status with implants and grafts; Z98.61 Coronary angioplasty status
CPT/HCPCS: 33210; 33361; 71010; 76937; 80048; 82948; 83735; 84132; 85002; 85014; 85025; 85027; 85610; 85730; 86850; 86900; 86901; 86920; 92986; 93005; 93308; 93312; 93320; 93325; 93620; 93623; 94150; C1730; C1760; C1769; C1893; G0269; J0690; J1644; J1940; J2250; J2720; J3010; J3475; J3480; J7613